=== PATIENT | male | born 1980 | race African-American/Black ===

== ENCOUNTER 2016-12-20 19:32 | Emergency (ER) | payer MEDICAID ==
[~2016-12-20] VITALS: Ht 182.9 cm; Wt 82.0 kg
[~2016-12-20 19:32] MED LIST: PARO30TA76 PO; SERT100T PO
[2016-12-20] MEDS ORDERED: IBUPROFEN 600MG TABLET PO STA (22:47)
[2016-12-20] MEDS ORDERED: OLANZAPINE 5MG TABLET PO ONE (23:00)
[2016-12-20] MEDS ORDERED: BENZTROPINE MESYLATE 0.5MG TABLET PO ONE (23:00)
[2016-12-20] MEDS ORDERED: TRAZODONE HCL 100MG TABLET PO ONE (23:00)
[2016-12-20 23:21] LABS: BASOPHILS % 0.9 % (0.0-2.0); EOSINOPHILS % 5.6 % (0.0-5.0); HEMATOCRIT. 41.2 % (42.0-52.0); LYMPHOCYTES % 29.7 % (20.0-50.0); MEAN CORPUSCULAR HEMOGLOBIN 32.6 pg (28.0-32.0); MEAN CORPUSCULAR HGB CONC 34.1 g/dL (31.0-37.0); MEAN CORPUSCULAR VOLUME 95.9 fL (80.0-94.0); MEAN PLATELET VOLUME 8.3 fl (7.4-10.4); MONOCYTES % 4.3 % (2.0-8.0); NEUTROPHILS % 59.5 % (40.0-76.0); PLATELET 268 x1000/uL (130-400); RED BLOOD CELL COUNT 4.29 mill/uL (4.7-6.1); RED CELL DISTRIBUTION WIDTH 12.5 % (11.6-14.6); WHITE BLOOD COUNT 8.5 x1000/uL (4.5-11.0)
[2016-12-20 23:28] LABS: ACETAMINOPHEN < 2 ug/mL (10-30); ALANINE AMINOTRANSFERASE 19 IU/L (13-61); ALBUMIN 4.3 g/dL (3.4-5.0); ANION GAP 12; CALCIUM 8.6 mg/dL (8.5-10.1); CARBON DIOXIDE 30 mEq/L (21-32); CHLORIDE 102 mEq/L (98-107); ETHANOL BLOOD 19 mg/dL; INDEX HEMOLYSI 3 (1-3); INDEX ICTERIC 1 (1-4); INDEX LIPEMIC 1 (1-3); UREA NITROGEN BLOOD 12 mg/dL (7-21); eGFR > 60 mL/min (>60)
[2016-12-21 06:57] LABS: CLARITY URINE CLEAR (CLEAR); COLOR URINE YELLOW (YELLOW); GLUCOSE URINE NEGATIVE (NEGATIVE); KETONES URINE TRACE (NEGATIVE); LEUKOCYTE ESTERASE URINE NEGATIVE (NEGATIVE); NITRITE URINE NEGATIVE (NEGATIVE); OCCULT BLOOD URINE NEGATIVE (NEGATIVE); PH URINE 5.5 (4.5-8.0); PROTEIN URINE NEGATIVE (NEGATIVE); SPECIFIC GRAVITY URINE 1.017 (1.005-1.030); UROBILINOGEN URINE 0.2 E.U./dL (0.2-1.0)
[2016-12-21 07:08] LABS: *AMPHETAMINES SCREEN URINE NEGATIVE (NEGATIVE); *BARBITURATES SCREEN URINE NEGATIVE (NEGATIVE); *BENZODIAZEPINES SCREEN URINE NEGATIVE (NEGATIVE); *COCAINE SCREEN URINE NEGATIVE (NEGATIVE); CANNABINOID URINE SCREEN NEGATIVE (NEGATIVE); ECSTASY MDMA SCREEN URINE NEGATIVE (NEGATIVE); METHADONE URINE SCREEN NEGATIVE (NEGATIVE); OPIATES URINE SCREEN NEGATIVE (NEGATIVE); PHENCYCLIDINE URINE SCREEN NEGATIVE (NEGATIVE)
[2016-12-21] MEDS ORDERED: OLANZAPINE 5MG TABLET PO SCH (09:00)
[2016-12-21 09:43] VITALS: BP 125/77
== END 2016-12-21 09:50 | disposition home or self-care (01) ==
LOC: ER 21:03
DX: F20.9 Schizophrenia, unspecified (principal); R45.851 Suicidal ideations; G89.29 Other chronic pain; M25.561 Pain in right knee; F17.210 Nicotine dependence, cigarettes, uncomplicated; Z91.14 Patient's other noncompliance with medication regimen
CPT/HCPCS: 36415; 80053; 80305; 80329; 81003; 85025; 99284; G0482; 80307

== ENCOUNTER 2018-07-05 22:20 | Emergency (ER) | payer MEDICAID ==
[~2018-07-05] VITALS: Ht 182.9 cm; Wt 82.0 kg
[2018-07-06 00:20] LABS: BASOPHILS % 0.8 % (0.0-2.0); EOSINOPHILS % 5.4 % (0.0-5.0); HEMATOCRIT. 36.8 % (42.0-52.0); HEMOGLOBIN. 12.9 g/dL (14.0-18.0); LYMPHOCYTES % 24.3 % (20.0-50.0); MEAN CORPUSCULAR HEMOGLOBIN 33.7 pg (28.0-32.0); MEAN CORPUSCULAR VOLUME 96.2 fL (80.0-94.0); MEAN PLATELET VOLUME 7.4 fl (7.4-10.4); NEUTROPHILS % 64.5 % (40.0-76.0); PLATELET 295 x1000/uL (130-400); RED BLOOD CELL COUNT 3.82 mill/uL (4.7-6.1); RED CELL DISTRIBUTION WIDTH 12.2 % (11.6-14.6)
[2018-07-06 00:28] LABS: CHLORIDE 101 mEq/L (98-107)
[2018-07-06 00:34] LABS: ETHANOL BLOOD < 10 mg/dL
[2018-07-06 01:01] LABS: *AMPHETAMINES SCREEN URINE NEGATIVE (NEGATIVE); *BARBITURATES SCREEN URINE NEGATIVE (NEGATIVE); *BENZODIAZEPINES SCREEN URINE NEGATIVE (NEGATIVE)
[2018-07-06 01:02] LABS: *COCAINE SCREEN URINE NEGATIVE (NEGATIVE); METHADONE URINE SCREEN NEGATIVE (NEGATIVE); OPIATES URINE SCREEN NEGATIVE (NEGATIVE)
[2018-07-06 01:03] LABS: CANNABINOID URINE SCREEN PRESUMTIVE POSITIVE (NEGATIVE); PHENCYCLIDINE URINE SCREEN NEGATIVE (NEGATIVE)
[2018-07-06 11:48] VITALS: BP 94/64
== END 2018-07-06 11:49 ==
LOC: ER 22:20
DX: R45.851 Suicidal ideations (principal); F31.9 Bipolar disorder, unspecified; F20.9 Schizophrenia, unspecified; F17.210 Nicotine dependence, cigarettes, uncomplicated; F12.10 Cannabis abuse, uncomplicated; R00.1 Bradycardia, unspecified
CPT/HCPCS: 36415; 80053; 80305; 80307; 80329; 85025; 93005; 99285; 99406; G0482

== ENCOUNTER 2018-10-17 20:31 | Emergency (ER) | payer MEDICAID ==
[~2018-10-17] VITALS: Ht 182.9 cm; Wt 91.0 kg
[2018-10-17 21:46] LABS: BASOPHILS % 0.4 % (0.0-2.0); EOSINOPHILS % 3.5 % (0.0-5.0); HEMATOCRIT. 37.7 % (42.0-52.0); HEMOGLOBIN. 12.8 g/dL (14.0-18.0); LYMPHOCYTES % 28.6 % (20.0-50.0); MEAN PLATELET VOLUME 7.6 fl (7.4-10.4); MONOCYTES % 4.3 % (2.0-8.0); NEUTROPHILS % 63.2 % (40.0-76.0); PLATELET 275 x1000/uL (130-400); RED BLOOD CELL COUNT 3.77 mill/uL (4.7-6.1); RED CELL DISTRIBUTION WIDTH 12.2 % (11.6-14.6)
[2018-10-17 21:49] LABS: CHLORIDE 108 mEq/L (98-107)
[2018-10-17 21:54] LABS: ETHANOL BLOOD 108 mg/dL
[2018-10-17 22:29] LABS: *AMPHETAMINES SCREEN URINE NEGATIVE (NEGATIVE); *BARBITURATES SCREEN URINE NEGATIVE (NEGATIVE)
[2018-10-17 22:30] LABS: *BENZODIAZEPINES SCREEN URINE NEGATIVE (NEGATIVE); *COCAINE SCREEN URINE NEGATIVE (NEGATIVE); METHADONE URINE SCREEN NEGATIVE (NEGATIVE); OPIATES URINE SCREEN NEGATIVE (NEGATIVE); PHENCYCLIDINE URINE SCREEN NEGATIVE (NEGATIVE)
[2018-10-17 22:31] LABS: CANNABINOID URINE SCREEN PRESUMTIVE POSITIVE (NEGATIVE)
[2018-10-18 09:55] VITALS: BP 132/74
== END 2018-10-18 09:59 | disposition home or self-care (01) ==
LOC: ER 20:31
DX: R45.851 Suicidal ideations (principal); F20.9 Schizophrenia, unspecified; F31.9 Bipolar disorder, unspecified; F17.200 Nicotine dependence, unspecified, uncomplicated
CPT/HCPCS: 36415; 80053; 80305; 80307; 80329; 85025; 93005; 99284; G0482

== ENCOUNTER 2019-03-16 20:07 | Emergency (ER) | payer MEDICAID ==
[~2019-03-16] VITALS: Ht 180.3 cm; Wt 82.7 kg
[2019-03-16 22:30] VITALS: BP 112/71
== END 2019-03-16 22:34 | disposition home or self-care (01) ==
LOC: ER 20:07
DX: F31.9 Bipolar disorder, unspecified (principal); F20.9 Schizophrenia, unspecified; R50.9 Fever, unspecified; F12.10 Cannabis abuse, uncomplicated; F17.200 Nicotine dependence, unspecified, uncomplicated; Z76.0 Encounter for issue of repeat prescription
CPT/HCPCS: 99282

== ENCOUNTER 2019-03-18 20:34 | Emergency (ER) | payer MEDICAID ==
[~2019-03-18] VITALS: Ht 180.3 cm; Wt 83.0 kg
[2019-03-18 23:53] LABS: BASOPHILS % 0.9 % (0.0-2.0); EOSINOPHILS % 5.2 % (0.0-5.0); HEMATOCRIT. 36.3 % (42.0-52.0); HEMOGLOBIN. 12.6 g/dL (14.0-18.0); LYMPHOCYTES % 28.7 % (20.0-50.0); MEAN CORPUSCULAR HEMOGLOBIN 33.9 pg (28.0-32.0); MEAN CORPUSCULAR VOLUME 97.4 fL (80.0-94.0); MEAN PLATELET VOLUME 7.7 fl (7.4-10.4); MONOCYTES % 4.3 % (2.0-8.0); NEUTROPHILS % 60.9 % (40.0-76.0); PLATELET 281 x1000/uL (130-400); RED BLOOD CELL COUNT 3.73 mill/uL (4.7-6.1); RED CELL DISTRIBUTION WIDTH 12.4 % (11.6-14.6)
[2019-03-18 23:59] LABS: CHLORIDE 106 mEq/L (98-107)
[2019-03-19 00:04] LABS: ETHANOL BLOOD < 10 mg/dL
[2019-03-19] MEDS ORDERED: TRAZODONE HCL 100MG TABLET PO SCH ×2 (00:25→21:00)
[2019-03-19 06:12] LABS: CLARITY URINE CLEAR (CLEAR); COLOR URINE YELLOW (YELLOW); KETONES URINE NEGATIVE (NEGATIVE); LEUKOCYTE ESTERASE URINE NEGATIVE (NEGATIVE); NITRITE URINE NEGATIVE (NEGATIVE); OCCULT BLOOD URINE NEGATIVE (NEGATIVE); PROTEIN URINE NEGATIVE (NEGATIVE); SPECIFIC GRAVITY URINE 1.013 (1.005-1.030)
[2019-03-19 06:32] LABS: *AMPHETAMINES SCREEN URINE NEGATIVE (NEGATIVE); *BARBITURATES SCREEN URINE NEGATIVE (NEGATIVE); *BENZODIAZEPINES SCREEN URINE NEGATIVE (NEGATIVE); *COCAINE SCREEN URINE NEGATIVE (NEGATIVE); METHADONE URINE SCREEN NEGATIVE (NEGATIVE); OPIATES URINE SCREEN NEGATIVE (NEGATIVE)
[2019-03-19 06:33] LABS: CANNABINOID URINE SCREEN PRESUMTIVE POSITIVE (NEGATIVE); PHENCYCLIDINE URINE SCREEN NEGATIVE (NEGATIVE)
[2019-03-19 09:51] VITALS: BP 110/68
== END 2019-03-19 10:31 | disposition home or self-care (01) ==
LOC: ER 20:34
DX: R45.851 Suicidal ideations (principal); F31.9 Bipolar disorder, unspecified; F20.9 Schizophrenia, unspecified; F17.200 Nicotine dependence, unspecified, uncomplicated; F12.10 Cannabis abuse, uncomplicated
CPT/HCPCS: 36415; 80305; 80320; 99284; G0480

== ENCOUNTER 2019-03-28 17:27 | Emergency (ER) | payer MEDICAID ==
[~2019-03-28] VITALS: Ht 180.3 cm; Wt 83.0 kg
[2019-03-28] MEDS ORDERED: BUPROPION HCL 75MG TABLET PO ONE (19:45)
[2019-03-28] MEDS ORDERED: GABAPENTIN 100MG CAPSULE PO ONE (19:45)
[2019-03-28] MEDS: OLANZAPINE 10MG TABLET PO SCH (20:17)
[2019-03-28 20:27] LABS: BASOPHILS % 0.7 % (0.0-2.0); EOSINOPHILS % 4.7 % (0.0-5.0); HEMATOCRIT. 36.7 % (42.0-52.0); LYMPHOCYTES % 30.1 % (20.0-50.0); MEAN CORPUSCULAR HEMOGLOBIN 34.4 pg (28.0-32.0); MEAN CORPUSCULAR VOLUME 96.9 fL (80.0-94.0); MEAN PLATELET VOLUME 7.7 fl (7.4-10.4); MONOCYTES % 5.2 % (2.0-8.0); NEUTROPHILS % 59.3 % (40.0-76.0); PLATELET 260 x1000/uL (130-400); RED BLOOD CELL COUNT 3.79 mill/uL (4.7-6.1); RED CELL DISTRIBUTION WIDTH 11.9 % (11.6-14.6)
[2019-03-28 20:33] LABS: CHLORIDE 106 mEq/L (98-107)
[2019-03-28 20:37] LABS: ETHANOL BLOOD < 10 mg/dL
[2019-03-28 20:42] LABS: *AMPHETAMINES SCREEN URINE NEGATIVE (NEGATIVE); *BARBITURATES SCREEN URINE NEGATIVE (NEGATIVE)
[2019-03-28 20:43] LABS: *BENZODIAZEPINES SCREEN URINE NEGATIVE (NEGATIVE); *COCAINE SCREEN URINE NEGATIVE (NEGATIVE); METHADONE URINE SCREEN NEGATIVE (NEGATIVE); OPIATES URINE SCREEN NEGATIVE (NEGATIVE)
[2019-03-28 20:44] LABS: CANNABINOID URINE SCREEN PRESUMTIVE POSITIVE (NEGATIVE); PHENCYCLIDINE URINE SCREEN NEGATIVE (NEGATIVE)
[2019-03-28] MEDS ORDERED: TRAZODONE HCL 100MG TABLET PO SCH (21:00)
[2019-03-29 09:30] VITALS: BP 111/65
[2019-03-29] MEDS: OLANZAPINE 10MG TABLET PO SCH (10:09)
== END 2019-03-29 10:25 | disposition home or self-care (01) ==
LOC: ER 17:27
DX: R45.851 Suicidal ideations (principal); F31.9 Bipolar disorder, unspecified; F20.9 Schizophrenia, unspecified; F12.10 Cannabis abuse, uncomplicated; Z98.890 Other specified postprocedural states; Z79.899 Other long term (current) drug therapy
CPT/HCPCS: 36415; 80305; 80307; 80320; 80329; 99284; G0480

== ENCOUNTER 2019-05-27 22:03 | Emergency (ER) | payer SELFPAY ==
[~2019-05-27] VITALS: Ht 180.3 cm; Wt 82.0 kg
[2019-05-27 23:57] LABS: CHLORIDE 103 mEq/L (98-107)
[2019-05-27 23:59] LABS: BASOPHILS % 0.9 % (0.0-2.0); EOSINOPHILS % 4.7 % (0.0-5.0); HEMATOCRIT. 35.6 % (42.0-52.0); HEMOGLOBIN. 12.3 g/dL (14.0-18.0); LYMPHOCYTES % 25.8 % (20.0-50.0); MEAN CORPUSCULAR HEMOGLOBIN 33.5 pg (28.0-32.0); MEAN PLATELET VOLUME 7.5 fl (7.4-10.4); MONOCYTES % 9.1 % (2.0-8.0); NEUTROPHILS % 59.5 % (40.0-76.0); PLATELET 279 x1000/uL (130-400); RED BLOOD CELL COUNT 3.67 mill/uL (4.7-6.1); RED CELL DISTRIBUTION WIDTH 11.9 % (11.6-14.6)
[2019-05-28 00:01] LABS: ETHANOL BLOOD < 10 mg/dL
[2019-05-28 00:40] LABS: CLARITY URINE CLEAR (CLEAR); COLOR URINE YELLOW (YELLOW); KETONES URINE TRACE (NEGATIVE); LEUKOCYTE ESTERASE URINE NEGATIVE (NEGATIVE); NITRITE URINE NEGATIVE (NEGATIVE); OCCULT BLOOD URINE NEGATIVE (NEGATIVE); PH URINE 5.5 (4.5-8.0); PROTEIN URINE NEGATIVE (NEGATIVE); SPECIFIC GRAVITY URINE 1.018 (1.005-1.030)
[2019-05-28 00:49] LABS: *AMPHETAMINES SCREEN URINE NEGATIVE (NEGATIVE); *BARBITURATES SCREEN URINE NEGATIVE (NEGATIVE)
[2019-05-28 00:50] LABS: *BENZODIAZEPINES SCREEN URINE NEGATIVE (NEGATIVE); OPIATES URINE SCREEN NEGATIVE (NEGATIVE)
[2019-05-28 00:51] LABS: *COCAINE SCREEN URINE NEGATIVE (NEGATIVE); METHADONE URINE SCREEN NEGATIVE (NEGATIVE)
[2019-05-28 00:52] LABS: PHENCYCLIDINE URINE SCREEN NEGATIVE (NEGATIVE)
[2019-05-28 00:53] LABS: CANNABINOID URINE SCREEN PRESUMTIVE POSITIVE (NEGATIVE)
[2019-05-28] MEDS ORDERED: OLANZAPINE 10MG TABLET PO SCH (01:00)
[2019-05-28 11:03] VITALS: BP 115/71
== END 2019-05-28 11:07 | disposition home or self-care (01) ==
LOC: ER 22:03
DX: F41.9 Anxiety disorder, unspecified (principal); R45.851 Suicidal ideations; F20.9 Schizophrenia, unspecified; F31.9 Bipolar disorder, unspecified; F12.10 Cannabis abuse, uncomplicated; F17.210 Nicotine dependence, cigarettes, uncomplicated; Z79.899 Other long term (current) drug therapy; Z98.890 Other specified postprocedural states; Z71.6 Tobacco abuse counseling
CPT/HCPCS: 36415; 80053; 80305; 80320; 81003; 85025; 99284; 99406; Z7610; G0480

== ENCOUNTER 2019-06-01 12:00 | Emergency (ER) | payer SELFPAY ==
[~2019-06-01] VITALS: Ht 182.9 cm; Wt 82.0 kg
[2019-06-01 12:14] VITALS: BP 114/66
== END 2019-06-01 18:49 | disposition left against medical advice (07) ==
LOC: ER 18:46
DX: Z53.21 Procedure and treatment not carried out due to patient leaving prior to being seen by health care provider (principal); F41.9 Anxiety disorder, unspecified; F31.9 Bipolar disorder, unspecified; F20.9 Schizophrenia, unspecified

== ENCOUNTER 2019-06-02 18:01 | Emergency (ER) | payer SELFPAY ==
[~2019-06-02] VITALS: Ht 180.3 cm; Wt 82.0 kg
[2019-06-02 18:22] VITALS: BP 109/64
== END 2019-06-03 00:20 | disposition left against medical advice (07) ==
LOC: ER 23:15
DX: Z53.21 Procedure and treatment not carried out due to patient leaving prior to being seen by health care provider (principal)

== ENCOUNTER 2019-06-04 19:24 | Emergency (ER) | payer SELFPAY ==
[~2019-06-04] VITALS: Ht 180.3 cm; Wt 82.0 kg
[2019-06-04] MEDS ORDERED: TRAZODONE HCL 50MG TABLET PO STA (21:03)
[2019-06-04] MEDS ORDERED: OLANZAPINE 5MG TABLET ODT PO ONE (21:15)
[2019-06-04] MEDS ORDERED: GABAPENTIN 100MG CAPSULE PO ONE (21:15)
[2019-06-04 21:18] LABS: BASOPHILS % 0.7 % (0.0-2.0); HEMATOCRIT. 36.1 % (42.0-52.0); HEMOGLOBIN. 12.4 g/dL (14.0-18.0); MEAN CORPUSCULAR HEMOGLOBIN 33.7 pg (28.0-32.0); MEAN CORPUSCULAR VOLUME 98.2 fL (80.0-94.0); MEAN PLATELET VOLUME 7.4 fl (7.4-10.4); NEUTROPHILS % 61.3 % (40.0-76.0); PLATELET 306 x1000/uL (130-400); RED BLOOD CELL COUNT 3.68 mill/uL (4.7-6.1); RED CELL DISTRIBUTION WIDTH 12.1 % (11.6-14.6)
[2019-06-04 21:23] LABS: CHLORIDE 108 mEq/L (98-107)
[2019-06-04 21:27] LABS: ETHANOL BLOOD < 10 mg/dL
[2019-06-04 22:14] LABS: *COCAINE SCREEN URINE NEGATIVE (NEGATIVE); METHADONE URINE SCREEN NEGATIVE (NEGATIVE); OPIATES URINE SCREEN NEGATIVE (NEGATIVE)
[2019-06-04 22:15] LABS: *AMPHETAMINES SCREEN URINE NEGATIVE (NEGATIVE); *BARBITURATES SCREEN URINE NEGATIVE (NEGATIVE); *BENZODIAZEPINES SCREEN URINE NEGATIVE (NEGATIVE); CANNABINOID URINE SCREEN PRESUMTIVE POSITIVE (NEGATIVE); PHENCYCLIDINE URINE SCREEN NEGATIVE (NEGATIVE)
[2019-06-05 15:09] VITALS: BP 110/56
== END 2019-06-05 16:02 | disposition home or self-care (01) ==
LOC: ER 19:24
DX: R45.851 Suicidal ideations (principal); F20.9 Schizophrenia, unspecified; F41.9 Anxiety disorder, unspecified; F31.9 Bipolar disorder, unspecified; F17.210 Nicotine dependence, cigarettes, uncomplicated; Z91.14 Patient's other noncompliance with medication regimen
CPT/HCPCS: 36415; 80048; 80305; 80307; 80320; 80329; 85025; 99284; Z7610; G0480

== ENCOUNTER 2019-06-26 16:44 | Emergency (ER) | payer SELFPAY ==
[~2019-06-26] VITALS: Ht 180.3 cm; Wt 81.0 kg
[2019-06-27 03:06] LABS: CHLORIDE 107 mEq/L (98-107); ETHANOL BLOOD < 10 mg/dL
[2019-06-27 03:12] LABS: BASOPHILS % 0.5 % (0.0-2.0); EOSINOPHILS % 5.4 % (0.0-5.0); HEMATOCRIT. 38.3 % (42.0-52.0); HEMOGLOBIN. 13.2 g/dL (14.0-18.0); LYMPHOCYTES % 27.6 % (20.0-50.0); MEAN CORPUSCULAR HEMOGLOBIN 33.6 pg (28.0-32.0); MEAN CORPUSCULAR VOLUME 97.8 fL (80.0-94.0); MONOCYTES % 5.5 % (2.0-8.0); PLATELET 295 x1000/uL (130-400); RED BLOOD CELL COUNT 3.92 mill/uL (4.7-6.1); RED CELL DISTRIBUTION WIDTH 12.2 % (11.6-14.6)
[2019-06-27 06:05] LABS: CLARITY URINE CLEAR (CLEAR); COLOR URINE YELLOW (YELLOW); KETONES URINE NEGATIVE (NEGATIVE); LEUKOCYTE ESTERASE URINE NEGATIVE (NEGATIVE); NITRITE URINE NEGATIVE (NEGATIVE); OCCULT BLOOD URINE NEGATIVE (NEGATIVE); PH URINE 5.5 (4.5-8.0); PROTEIN URINE NEGATIVE (NEGATIVE); SPECIFIC GRAVITY URINE 1.017 (1.005-1.030); UROBILINOGEN URINE 0.2 E.U./dL (0.2-1.0)
[2019-06-27 06:18] LABS: *AMPHETAMINES SCREEN URINE NEGATIVE (NEGATIVE); *BARBITURATES SCREEN URINE NEGATIVE (NEGATIVE); *BENZODIAZEPINES SCREEN URINE NEGATIVE (NEGATIVE); *COCAINE SCREEN URINE NEGATIVE (NEGATIVE)
[2019-06-27 06:19] LABS: CANNABINOID URINE SCREEN PRESUMTIVE POSITIVE (NEGATIVE); METHADONE URINE SCREEN NEGATIVE (NEGATIVE); OPIATES URINE SCREEN NEGATIVE (NEGATIVE); PHENCYCLIDINE URINE SCREEN NEGATIVE (NEGATIVE)
[2019-06-27 11:23] VITALS: BP 101/66
== END 2019-06-27 11:26 | disposition home or self-care (01) ==
LOC: ER 17:28
DX: F20.9 Schizophrenia, unspecified (principal); R45.851 Suicidal ideations; F31.9 Bipolar disorder, unspecified; F17.200 Nicotine dependence, unspecified, uncomplicated
CPT/HCPCS: 36415; 80048; 80305; 80307; 80320; 80329; 81003; 99284; G0480

== ENCOUNTER 2019-06-30 18:43 | Emergency (ER) | payer SELFPAY | END 2019-06-30 20:12 | disposition left against medical advice (07) | LOC: ER 18:43 | DX: Z53.21 Procedure and treatment not carried out due to patient leaving prior to being seen by health care provider (principal) ==

== ENCOUNTER 2019-07-01 17:46 | Emergency (ER) | payer SELFPAY ==
[~2019-07-01] VITALS: Ht 180.3 cm; Wt 82.0 kg
[2019-07-02 01:15] LABS: EOSINOPHILS % 5.3 % (0.0-5.0); HEMATOCRIT. 37.5 % (42.0-52.0); LYMPHOCYTES % 29.1 % (20.0-50.0); MEAN CORPUSCULAR HEMOGLOBIN 33.5 pg (28.0-32.0); MEAN PLATELET VOLUME 7.4 fl (7.4-10.4); MONOCYTES % 5.6 % (2.0-8.0); PLATELET 293 x1000/uL (130-400); RED BLOOD CELL COUNT 3.87 mill/uL (4.7-6.1)
[2019-07-02] MEDS ORDERED: LORAZEPAM 1MG TABLET PO ONE (01:15)
[2019-07-02 01:21] LABS: CHLORIDE 104 mEq/L (98-107)
[2019-07-02 01:24] LABS: ETHANOL BLOOD < 10 mg/dL
[2019-07-02 02:58] LABS: CLARITY URINE CLEAR (CLEAR); COLOR URINE YELLOW (YELLOW); KETONES URINE TRACE (NEGATIVE); LEUKOCYTE ESTERASE URINE NEGATIVE (NEGATIVE); NITRITE URINE NEGATIVE (NEGATIVE); OCCULT BLOOD URINE NEGATIVE (NEGATIVE); PH URINE 5.5 (4.5-8.0); PROTEIN URINE NEGATIVE (NEGATIVE); SPECIFIC GRAVITY URINE 1.018 (1.005-1.030)
[2019-07-02 03:19] LABS: CANNABINOID URINE SCREEN PRESUMTIVE POSITIVE (NEGATIVE); METHADONE URINE SCREEN NEGATIVE (NEGATIVE); OPIATES URINE SCREEN NEGATIVE (NEGATIVE); PHENCYCLIDINE URINE SCREEN NEGATIVE (NEGATIVE)
[2019-07-02 03:20] LABS: *AMPHETAMINES SCREEN URINE NEGATIVE (NEGATIVE); *BARBITURATES SCREEN URINE NEGATIVE (NEGATIVE); *BENZODIAZEPINES SCREEN URINE NEGATIVE (NEGATIVE)
[2019-07-02 03:21] LABS: *COCAINE SCREEN URINE NEGATIVE (NEGATIVE)
[2019-07-02] MEDS ORDERED: HALOPERIDOL LACTATE 5MG/ML VIAL IM ONE (13:15)
[2019-07-02] MEDS ORDERED: LORAZEPAM 2MG/ML CPJ IM ONE (13:15)
[2019-07-02 13:40] VITALS: BP 110/65
== END 2019-07-02 14:16 | disposition home or self-care (01) ==
LOC: ER 17:46
DX: F91.1 Conduct disorder, childhood-onset type (principal); F31.9 Bipolar disorder, unspecified; F20.9 Schizophrenia, unspecified; F12.10 Cannabis abuse, uncomplicated; F17.200 Nicotine dependence, unspecified, uncomplicated; Z91.14 Patient's other noncompliance with medication regimen; Z79.899 Other long term (current) drug therapy
CPT/HCPCS: 36415; 80305; 80320; 81003; 99283; J1630; J2060; G0480

== ENCOUNTER 2019-07-05 21:21 | Emergency (ER) | payer SELFPAY ==
[~2019-07-05] VITALS: Ht 180.3 cm; Wt 82.0 kg
[2019-07-05 22:11] VITALS: BP 112/66
== END 2019-07-06 09:37 | disposition left against medical advice (07) ==
LOC: ER 21:21
DX: Z76.0 Encounter for issue of repeat prescription (principal); F31.9 Bipolar disorder, unspecified; F20.9 Schizophrenia, unspecified; F17.200 Nicotine dependence, unspecified, uncomplicated; Z96.659 Presence of unspecified artificial knee joint
CPT/HCPCS: 99281

== ENCOUNTER 2019-07-08 02:06 | Emergency (ER) | payer SELFPAY ==
[~2019-07-08] VITALS: Ht 188 cm; Wt 82.0 kg
[2019-07-08 02:47] VITALS: BP 109/70
== END 2019-07-08 05:56 | disposition left against medical advice (07) ==
LOC: ER 02:06
DX: Z53.21 Procedure and treatment not carried out due to patient leaving prior to being seen by health care provider (principal)

== ENCOUNTER 2019-07-12 16:17 | Emergency (ER) | payer SELFPAY ==
[~2019-07-12] VITALS: Ht 180.3 cm; Wt 90.0 kg
[2019-07-12] MEDS ORDERED: OLANZAPINE 5MG TABLET ODT PO ONE (17:45)
[2019-07-12] MEDS ORDERED: OLANZAPINE 5MG TABLET ODT PO NR (18:00)
[2019-07-12 18:10] LABS: CHLORIDE 111 mEq/L (98-107)
[2019-07-12 18:11] LABS: BASOPHILS % 3.5 % (0.0-2.0); EOSINOPHILS % 6.3 % (0.0-5.0); HEMOGLOBIN. 12.4 g/dL (14.0-18.0); LYMPHOCYTES % 20.1 % (20.0-50.0); MEAN CORPUSCULAR HEMOGLOBIN 33.4 pg (28.0-32.0); MEAN CORPUSCULAR VOLUME 96.6 fL (80.0-94.0); MEAN PLATELET VOLUME 7.7 fl (7.4-10.4); MONOCYTES % 3.5 % (2.0-8.0); NEUTROPHILS % 66.6 % (40.0-76.0); PLATELET 278 x1000/uL (130-400); RED BLOOD CELL COUNT 3.73 mill/uL (4.7-6.1); RED CELL DISTRIBUTION WIDTH 12.3 % (11.6-14.6)
[2019-07-12 18:15] LABS: ETHANOL BLOOD 29 mg/dL
[2019-07-12 20:29] LABS: CLARITY URINE CLEAR (CLEAR); COLOR URINE YELLOW (YELLOW); KETONES URINE NEGATIVE (NEGATIVE); LEUKOCYTE ESTERASE URINE NEGATIVE (NEGATIVE); NITRITE URINE NEGATIVE (NEGATIVE); OCCULT BLOOD URINE NEGATIVE (NEGATIVE); PH URINE 6.5 (4.5-8.0); PROTEIN URINE NEGATIVE (NEGATIVE); SPECIFIC GRAVITY URINE 1.017 (1.005-1.030)
[2019-07-12 20:34] VITALS: BP 105/58
[2019-07-12 20:47] LABS: *AMPHETAMINES SCREEN URINE NEGATIVE (NEGATIVE); *BARBITURATES SCREEN URINE NEGATIVE (NEGATIVE); *BENZODIAZEPINES SCREEN URINE NEGATIVE (NEGATIVE); *COCAINE SCREEN URINE NEGATIVE (NEGATIVE); METHADONE URINE SCREEN NEGATIVE (NEGATIVE); OPIATES URINE SCREEN NEGATIVE (NEGATIVE); PHENCYCLIDINE URINE SCREEN NEGATIVE (NEGATIVE)
[2019-07-12 20:48] LABS: CANNABINOID URINE SCREEN PRESUMTIVE POSITIVE (NEGATIVE)
== END 2019-07-12 21:04 | disposition home or self-care (01) ==
LOC: ER 16:17
DX: R44.3 Hallucinations, unspecified (principal); F12.10 Cannabis abuse, uncomplicated
CPT/HCPCS: 36415; 80305; 80307; 80320; 80329; 81003; 99284; G0480

== ENCOUNTER 2019-07-14 21:15 | Emergency (ER) | payer SELFPAY ==
[~2019-07-14] VITALS: Ht 180.3 cm; Wt 82.0 kg
[2019-07-15] MEDS ORDERED: OLANZAPINE 10 MG/VIAL IM ONE (01:00)
[2019-07-15 08:00] VITALS: BP 110/75
== END 2019-07-15 10:29 | disposition left against medical advice (07) ==
LOC: ER 21:15
DX: F20.9 Schizophrenia, unspecified (principal); Z53.21 Procedure and treatment not carried out due to patient leaving prior to being seen by health care provider; F12.10 Cannabis abuse, uncomplicated; Z79.899 Other long term (current) drug therapy
CPT/HCPCS: 96372; 99283; J3490

== ENCOUNTER 2019-09-05 20:21 | Emergency (ER) | payer MEDICAID ==
[~2019-09-05] VITALS: Ht 180.3 cm; Wt 77.2 kg
[2019-09-05] MEDS ORDERED: OLANZAPINE 5MG TABLET ODT PO ONE (21:30)
[2019-09-05] MEDS ORDERED: LORAZEPAM 1MG TABLET PO ONE (21:30)
[2019-09-05 22:15] LABS: BASOPHILS % 0.8 % (0.0-2.0); EOSINOPHILS % 4.9 % (0.0-5.0); HEMATOCRIT. 37.6 % (42.0-52.0); LYMPHOCYTES % 29.9 % (20.0-50.0); MEAN CORPUSCULAR HEMOGLOBIN 33.8 pg (28.0-32.0); MEAN CORPUSCULAR VOLUME 97.8 fL (80.0-94.0); MEAN PLATELET VOLUME 8.3 fl (7.4-10.4); NEUTROPHILS % 60.4 % (40.0-76.0); PLATELET 257 x1000/uL (130-400); RED BLOOD CELL COUNT 3.85 mill/uL (4.7-6.1)
[2019-09-05 22:17] LABS: CHLORIDE 107 mEq/L (98-107)
[2019-09-05 22:22] LABS: ETHANOL BLOOD 41 mg/dL
[2019-09-05 22:26] LABS: CLARITY URINE CLEAR (CLEAR); COLOR URINE YELLOW (YELLOW); KETONES URINE NEGATIVE (NEGATIVE); LEUKOCYTE ESTERASE URINE NEGATIVE (NEGATIVE); NITRITE URINE NEGATIVE (NEGATIVE); OCCULT BLOOD URINE NEGATIVE (NEGATIVE); PH URINE 5.5 (4.5-8.0); PROTEIN URINE NEGATIVE (NEGATIVE); SPECIFIC GRAVITY URINE 1.015 (1.005-1.030)
[2019-09-05 22:40] LABS: *AMPHETAMINES SCREEN URINE NEGATIVE (NEGATIVE); *BARBITURATES SCREEN URINE NEGATIVE (NEGATIVE); *BENZODIAZEPINES SCREEN URINE NEGATIVE (NEGATIVE); CANNABINOID URINE SCREEN PRESUMTIVE POSITIVE (NEGATIVE)
[2019-09-05 22:41] LABS: METHADONE URINE SCREEN NEGATIVE (NEGATIVE); OPIATES URINE SCREEN NEGATIVE (NEGATIVE); PHENCYCLIDINE URINE SCREEN NEGATIVE (NEGATIVE)
[2019-09-05 22:51] LABS: *COCAINE SCREEN URINE NEGATIVE (NEGATIVE)
[2019-09-06 06:43] VITALS: BP 105/71
== END 2019-09-06 12:27 | disposition home or self-care (01) ==
LOC: ER 20:21
DX: R45.851 Suicidal ideations (principal); F31.9 Bipolar disorder, unspecified; F20.9 Schizophrenia, unspecified; F10.129 Alcohol abuse with intoxication, unspecified; Y90.0 Blood alcohol level of less than 20 mg/100 ml; Z91.14 Patient's other noncompliance with medication regimen
CPT/HCPCS: 36415; 80305; 80307; 80320; 80329; 81003; 99284; G0480

== ENCOUNTER 2019-09-08 13:09 | Emergency (ER) | payer MEDICAID ==
[~2019-09-08] VITALS: Ht 172.7 cm; Wt 80.0 kg
[2019-09-08 13:25] VITALS: BP 128/75
[2019-09-09] MEDS ORDERED: OLAN15TA3 PO (04:13)
== END 2019-09-08 14:43 | disposition left against medical advice (07) ==
LOC: ER 13:09
DX: Z76.0 Encounter for issue of repeat prescription (principal); Z53.21 Procedure and treatment not carried out due to patient leaving prior to being seen by health care provider

== ENCOUNTER 2019-09-08 17:21 | Inpatient (IN) | payer MEDICAID ==
[~2019-09-08] VITALS: Ht 182.9 cm; Wt 84.8 kg
[2019-09-08] MEDS ORDERED: MAGNESIUM/ALUMINUM HYDROXIDE/SIMETHICONE 30ML UDC PO STA (18:38)
[2019-09-08] MEDS ORDERED: VISCOUS LIDOCAINE 2% 15 ML UDC PO STA (18:38)
[2019-09-08] MEDS ORDERED: FAMOTIDINE 20MG/2ML VIAL IV STA (18:38)
[2019-09-08 19:07] LABS: HEMATOCRIT. 39.1 % (42.0-52.0); HEMOGLOBIN. 13.2 g/dL (14.0-18.0); MEAN CORPUSCULAR HEMOGLOBIN 32.7 pg (28.0-32.0); MEAN CORPUSCULAR VOLUME 96.8 fL (80.0-94.0); MEAN PLATELET VOLUME 7.7 fl (7.4-10.4); PLATELET 276 x1000/uL (130-400); RED BLOOD CELL COUNT 4.04 mill/uL (4.7-6.1); RED CELL DISTRIBUTION WIDTH 12.4 % (11.6-14.6)
[2019-09-08 19:13] LABS: CHLORIDE 106 mEq/L (98-107)
[2019-09-08] MEDS ORDERED: OLANZAPINE 5MG TABLET ODT PO ONE (19:30)
[2019-09-08 20:57] LABS: PLATELET ESTIMATE NORMAL
[2019-09-08 21:08] LABS: CLARITY URINE CLEAR (CLEAR); COLOR URINE YELLOW (YELLOW); KETONES URINE 1+ (NEGATIVE); LEUKOCYTE ESTERASE URINE NEGATIVE (NEGATIVE); NITRITE URINE NEGATIVE (NEGATIVE); OCCULT BLOOD URINE NEGATIVE (NEGATIVE); PROTEIN URINE TRACE (NEGATIVE); SPECIFIC GRAVITY URINE 1.016 (1.005-1.030)
[2019-09-08] MEDS ORDERED: MORPHINE SULFATE 4 MG/ML CPJ (NOT FOR IM USE) IV ONE (22:30)
[2019-09-09] MEDS ORDERED: PIPERACILLIN/TAZOBACTAM 3.375GM/50ML PREMIX IV ONE (00:15)
[2019-09-09] MEDS ORDERED: PIPERACILLIN/TAZOBACTAM 3.375 G in DEXT 5% WATER 100 ML IV NR (00:50)
[2019-09-09] MEDS ORDERED: SKIN ADHESIVE 0.7 GM EA TOP ONE (00:50)
[2019-09-09] MEDS ORDERED: BUPIVACAINE HCL 0.5% (5MG/ML) 50ML ONE (00:50)
[2019-09-09] MEDS ORDERED: IOHEXOL-300 100 ML BOTTLE ONE (00:52)
[2019-09-09] MEDS ORDERED: HYDROCODONE/ACETAMINOPHEN 5/325MG TABLET PO PRN (01:00)
[2019-09-09] MEDS ORDERED: MORPHINE SULFATE 2 MG/ML CPJ (NOT FOR IM USE) IV PRN ×2 (01:00→02:15)
[2019-09-09] MEDS ORDERED: ONDANSETRON HCL 4MG/2ML INJ IV PRN ×2 (01:00→02:15)
[2019-09-09] MEDS ORDERED: MIDAZOLAM HCL 2 MG/2 ML VIAL ONE (01:11)
[2019-09-09] MEDS ORDERED: GLYCOPYRROLATE 0.2 MG/ML 2ML VIAL ONE (01:11)
[2019-09-09] MEDS ORDERED: PROPOFOL 200MG/20ML VIAL IV ONE (01:11)
[2019-09-09] MEDS ORDERED: FENTANYL CITRATE/PF 50MCG/ML 2ML VIAL ONE ×2 (01:11→01:38)
[2019-09-09] MEDS ORDERED: NEOSTIGMINE METHYLSULFATE 1MG/ML 10 ML VIAL ONE (01:11)
[2019-09-09] MEDS ORDERED: ROCURONIUM BROMIDE 10MG/ML VIAL 5ML IV ONE (01:11)
[2019-09-09] MEDS ORDERED: SODIUM CHLORIDE 0.9% 10ML VIAL ONE (01:12)
[2019-09-09] MEDS ORDERED: SUCCINYLCHOLINE CHLORIDE 200MG/10ML IV ONE (01:12)
[2019-09-09] MEDS ORDERED: PHENYLEPHRINE HCL 10 MG/ML 1ML (IV VIAL) IV ONE (01:12)
[2019-09-09] MEDS ORDERED: LIDOCAINE HCL/PF 1% 10 MG/ML 5ML VIAL ONE (01:12)
[2019-09-09] MEDS ORDERED: EPHEDRINE SULFATE 50MG/ML VIAL ONE (01:12)
[2019-09-09] MEDS ORDERED: METOCLOPRAMIDE HCL 10MG/2ML VIAL ONE (01:13)
[2019-09-09] MEDS ORDERED: SODIUM CHLORIDE 0.9% 1,000 ML IV ONE (02:12)
[2019-09-09] MEDS ORDERED: MEPERIDINE HCL/PF 25MG/ML CPJ IV PRN ×2 (02:15)
[2019-09-09] MEDS ORDERED: HYDROMORPHONE HCL/PF 2MG/ML CPJ IV PRN (02:15)
[2019-09-09 03:20] VITALS: BP 102/60
[2019-09-09 04:00] VITALS: BP 102/60
[2019-09-09] MEDS ORDERED: OLAN15TA3 PO (04:13)
[2019-09-09] MEDS: HYDROCODONE/ACETAMINOPHEN 5/325MG TABLET PO PRN (05:14)
[2019-09-09] MEDS: SODIUM CHLORIDE 0.9% INJ 3ML FLUSH IVF SCH ×3 (06:46→21:03)
[2019-09-09 08:00] VITALS: BP 95/52
[2019-09-09 12:00] VITALS: BP 98/61
[2019-09-09] MEDS: MORPHINE SULFATE 4 MG/ML CPJ (NOT FOR IM USE) IV PRN ×3 (14:55→20:44)
[2019-09-09] MEDS: DEXT 5%/0.45% NACL KCL 20MEQ/L 1,000 ML IV SCH (15:41)
[2019-09-09 16:00] VITALS: BP 97/63
[2019-09-09 20:00] VITALS: BP 101/61
[2019-09-10] VITALS: BP 97/59
[2019-09-10] MEDS: MORPHINE SULFATE 4 MG/ML CPJ (NOT FOR IM USE) IV PRN ×3 (00:19→08:39)
[2019-09-10 04:00] VITALS: BP 98/68
[2019-09-10] MEDS: DEXT 5%/0.45% NACL KCL 20MEQ/L 1,000 ML IV SCH ×2 (04:34→10:46)
[2019-09-10 06:05] VITALS: BP 98/68
[2019-09-10] MEDS: SODIUM CHLORIDE 0.9% INJ 3ML FLUSH IVF SCH ×2 (06:09→13:13)
[2019-09-10 07:28] LABS: BASOPHILS % 0.3 % (0.0-2.0); EOSINOPHILS % 1.4 % (0.0-5.0); HEMATOCRIT. 34.7 % (42.0-52.0); HEMOGLOBIN. 12.3 g/dL (14.0-18.0); LYMPHOCYTES % 15.1 % (20.0-50.0); MEAN CORPUSCULAR HEMOGLOBIN 34.5 pg (28.0-32.0); MEAN CORPUSCULAR VOLUME 97.5 fL (80.0-94.0); MEAN PLATELET VOLUME 8.1 fl (7.4-10.4); MONOCYTES % 4.5 % (2.0-8.0); NEUTROPHILS % 78.7 % (40.0-76.0); PLATELET 213 x1000/uL (130-400); RED BLOOD CELL COUNT 3.55 mill/uL (4.7-6.1); RED CELL DISTRIBUTION WIDTH 12.3 % (11.6-14.6)
[2019-09-10 07:30] LABS: CHLORIDE 107 mEq/L (98-107)
[2019-09-10 08:00] VITALS: BP 122/83
[2019-09-10] MEDS ORDERED: SERTRALINE HCL 100MG TABLET PO SCH (09:00)
[2019-09-10] MEDS: HYDROCODONE/ACETAMINOPHEN 5/325MG TABLET PO PRN (11:59)
[2019-09-10 12:00] VITALS: BP 115/73
[2019-09-10 13:04] VITALS: BP 115/73
== END 2019-09-10 13:45 | disposition home or self-care (01) | DRG 234 ==
LOC: ER 17:21 → 6EST 09-09 01:20 → ENRESERV 09-09 02:31
PROVIDERS: ADMIT Internal Medicine; ATTEND Internal Medicine
PROC: 0DTJ4ZZ Resection of Appendix, Percutaneous Endoscopic Approach (ICD-10-PCS; principal; 2019-09-09)
DX: K35.80 Unspecified acute appendicitis (principal); F20.9 Schizophrenia, unspecified; F31.9 Bipolar disorder, unspecified; F17.210 Nicotine dependence, cigarettes, uncomplicated; Z71.6 Tobacco abuse counseling
CPT/HCPCS: 36415; 74177; 80048; 81003; 88304; 93005; 99285; J0330; J2175; J2250; J2270; J2370; J2405; J2543; J2704; J2710; J2765; J3010; J3490; J7030; J7060; Q9967

== ENCOUNTER 2019-09-12 14:15 | Emergency (ER) | payer MEDICAID ==
[~2019-09-12] VITALS: Ht 180.3 cm; Wt 77.0 kg
[~2019-09-12 14:15] MED LIST changes: +OLAN15TA3 PO
[2019-09-12] MEDS ORDERED: SODIUM CHLORIDE 0.9% 1,000 ML IV ONE (17:49)
[2019-09-12] MEDS ORDERED: ONDANSETRON HCL 4MG/2ML INJ IV STA (17:49)
[2019-09-12 18:37] LABS: BASOPHILS % 0.3 % (0.0-2.0); EOSINOPHILS % 2.6 % (0.0-5.0); HEMATOCRIT. 35.8 % (42.0-52.0); HEMOGLOBIN. 12.4 g/dL (14.0-18.0); LYMPHOCYTES % 16.5 % (20.0-50.0); MEAN CORPUSCULAR HEMOGLOBIN 33.6 pg (28.0-32.0); MEAN CORPUSCULAR VOLUME 96.8 fL (80.0-94.0); MONOCYTES % 4.3 % (2.0-8.0); NEUTROPHILS % 76.3 % (40.0-76.0); PLATELET 284 x1000/uL (130-400)
[2019-09-12 18:40] LABS: CHLORIDE 106 mEq/L (98-107)
[2019-09-12] MEDS ORDERED: MORPHINE SULFATE 4 MG/ML CPJ (NOT FOR IM USE) IV ONE (19:00)
[2019-09-12] MEDS ORDERED: KETOROLAC 30MG/ML VIAL IV ONE (19:00)
[2019-09-12 20:43] VITALS: BP 126/77
== END 2019-09-12 20:44 | disposition home or self-care (01) ==
LOC: ER 14:15
DX: G89.18 Other acute postprocedural pain (principal); R10.9 Unspecified abdominal pain; K59.00 Constipation, unspecified; F31.9 Bipolar disorder, unspecified; F20.9 Schizophrenia, unspecified; Z98.890 Other specified postprocedural states
CPT/HCPCS: 36415; 74176; 80053; 83690; 85025; 96361; 96374; 96375; 99284; J1885; J2270; J2405; J7030

== ENCOUNTER 2019-09-14 21:12 | Emergency (ER) | payer MEDICAID ==
[~2019-09-14] VITALS: Ht 182.9 cm; Wt 75.6 kg
[2019-09-14 22:07] VITALS: BP 116/69
[2019-09-14] MEDS ORDERED: MAGNESIUM HYDROXIDE 400MG/5ML 30ML UDC PO ONE (22:15)
[2019-09-14] MEDS ORDERED: KETOROLAC 60MG/2ML VIAL IM STA (22:15)
[2019-09-14 22:40] LABS: BASOPHILS % 0.5 % (0.0-2.0); EOSINOPHILS % 1.4 % (0.0-5.0); HEMOGLOBIN. 11.5 g/dL (14.0-18.0); LYMPHOCYTES % 18.5 % (20.0-50.0); MEAN CORPUSCULAR HEMOGLOBIN 33.6 pg (28.0-32.0); MEAN CORPUSCULAR VOLUME 96.4 fL (80.0-94.0); MEAN PLATELET VOLUME 7.2 fl (7.4-10.4); MONOCYTES % 7.1 % (2.0-8.0); NEUTROPHILS % 72.5 % (40.0-76.0); PLATELET 278 x1000/uL (130-400); RED BLOOD CELL COUNT 3.43 mill/uL (4.7-6.1); RED CELL DISTRIBUTION WIDTH 12.3 % (11.6-14.6)
[2019-09-14 22:46] LABS: CHLORIDE 107 mEq/L (98-107)
== END 2019-09-14 23:26 | disposition home or self-care (01) ==
LOC: ER 21:12
DX: G89.18 Other acute postprocedural pain (principal); F31.9 Bipolar disorder, unspecified; F20.9 Schizophrenia, unspecified; Z98.890 Other specified postprocedural states
CPT/HCPCS: 36415; 80053; 83690; 85025; 96372; 99283; J1885; J7040

== ENCOUNTER 2019-09-15 00:08 | Emergency (ER) | payer MEDICAID ==
[~2019-09-15] VITALS: Ht 180.3 cm; Wt 80.0 kg
[2019-09-15 02:17] LABS: ETHANOL BLOOD < 10 mg/dL
[2019-09-15 03:25] LABS: CLARITY URINE CLEAR (CLEAR); COLOR URINE YELLOW (YELLOW); KETONES URINE TRACE (NEGATIVE); LEUKOCYTE ESTERASE URINE NEGATIVE (NEGATIVE); NITRITE URINE NEGATIVE (NEGATIVE); OCCULT BLOOD URINE NEGATIVE (NEGATIVE); PROTEIN URINE TRACE (NEGATIVE); SPECIFIC GRAVITY URINE 1.017 (1.005-1.030)
[2019-09-15 03:43] LABS: CANNABINOID URINE SCREEN PRESUMTIVE POSITIVE (NEGATIVE)
[2019-09-15 03:44] LABS: *AMPHETAMINES SCREEN URINE NEGATIVE (NEGATIVE); *BARBITURATES SCREEN URINE NEGATIVE (NEGATIVE); *BENZODIAZEPINES SCREEN URINE NEGATIVE (NEGATIVE); *COCAINE SCREEN URINE NEGATIVE (NEGATIVE); METHADONE URINE SCREEN NEGATIVE (NEGATIVE); OPIATES URINE SCREEN PRESUMTIVE POSITIVE (NEGATIVE)
[2019-09-15 03:45] LABS: PHENCYCLIDINE URINE SCREEN NEGATIVE (NEGATIVE)
[2019-09-15 17:35] VITALS: BP 132/79
== END 2019-09-15 19:48 | disposition home or self-care (01) ==
LOC: ER 00:08
DX: R45.851 Suicidal ideations (principal); G89.29 Other chronic pain; R10.9 Unspecified abdominal pain; F12.10 Cannabis abuse, uncomplicated; F31.9 Bipolar disorder, unspecified; F20.9 Schizophrenia, unspecified; Z90.49 Acquired absence of other specified parts of digestive tract
CPT/HCPCS: 36415; 80305; 80307; 80320; 80329; 81003; 99283; G0480

== ENCOUNTER 2019-09-17 21:00 | Emergency (ER) | payer MEDICAID | END 2019-09-18 00:11 | disposition left against medical advice (07) | LOC: ER 21:00 | DX: Z53.21 Procedure and treatment not carried out due to patient leaving prior to being seen by health care provider (principal); F31.9 Bipolar disorder, unspecified; F20.9 Schizophrenia, unspecified; Z59.0 Homelessness; Z87.891 Personal history of nicotine dependence ==

== ENCOUNTER 2019-09-28 20:06 | Emergency (ER) | payer MEDICAID ==
[~2019-09-28] VITALS: Ht 182.9 cm; Wt 80.0 kg
[2019-09-28 20:43] VITALS: BP 114/68
== END 2019-09-28 22:01 | disposition left against medical advice (07) ==
LOC: ER 20:06
DX: Z53.21 Procedure and treatment not carried out due to patient leaving prior to being seen by health care provider (principal); F31.9 Bipolar disorder, unspecified; F20.9 Schizophrenia, unspecified

== ENCOUNTER 2019-10-01 22:12 | Emergency (ER) | payer MEDICAID | END 2019-10-02 01:21 | disposition left against medical advice (07) | LOC: ER 22:12 | DX: R45.851 Suicidal ideations (principal); Z53.21 Procedure and treatment not carried out due to patient leaving prior to being seen by health care provider ==

== ENCOUNTER 2019-10-11 15:37 | Emergency (ER) | payer MEDICAID ==
[~2019-10-11] VITALS: Ht 180.3 cm; Wt 88.0 kg
[2019-10-11 16:00] VITALS: BP 126/80
== END 2019-10-11 20:00 | disposition left against medical advice (07) ==
LOC: ER 15:37
DX: J02.9 Acute pharyngitis, unspecified (principal); Z53.21 Procedure and treatment not carried out due to patient leaving prior to being seen by health care provider

== ENCOUNTER 2019-10-12 08:58 | Emergency (ER) | payer MEDICAID ==
[~2019-10-12] VITALS: Ht 180.3 cm; Wt 83.0 kg
[2019-10-12] MEDS ORDERED: KETOROLAC 15MG/ML VIAL IV ONE (10:00)
[2019-10-12 10:26] VITALS: BP 126/77
[2019-10-12 10:48] LABS: BASOPHILS % 0.6 % (0.0-2.0); EOSINOPHILS % 7.5 % (0.0-5.0); HEMATOCRIT. 36.6 % (42.0-52.0); HEMOGLOBIN. 12.5 g/dL (14.0-18.0); LYMPHOCYTES % 25.2 % (20.0-50.0); MEAN CORPUSCULAR HEMOGLOBIN 33.5 pg (28.0-32.0); MEAN CORPUSCULAR VOLUME 97.8 fL (80.0-94.0); MEAN PLATELET VOLUME 7.6 fl (7.4-10.4); MONOCYTES % 5.2 % (2.0-8.0); NEUTROPHILS % 61.5 % (40.0-76.0); PLATELET 244 x1000/uL (130-400); RED BLOOD CELL COUNT 3.74 mill/uL (4.7-6.1); RED CELL DISTRIBUTION WIDTH 12.9 % (11.6-14.6)
[2019-10-12 10:55] LABS: CHLORIDE 110 mEq/L (98-107)
[2019-10-12] MEDS ORDERED: IOHEXOL-300 100 ML BOTTLE ONE (11:56)
== END 2019-10-12 12:15 | disposition home or self-care (01) ==
LOC: ER 08:58
DX: E04.1 Nontoxic single thyroid nodule (principal); R59.9 Enlarged lymph nodes, unspecified; F17.200 Nicotine dependence, unspecified, uncomplicated; Z98.890 Other specified postprocedural states
CPT/HCPCS: 36415; 70491; 80053; 85025; 87070; 87430; 96374; 99284; J1885; Q9967

== ENCOUNTER 2019-12-07 17:33 | Emergency (ER) | payer MEDICAID ==
[~2019-12-07] VITALS: Ht 180.3 cm; Wt 81.0 kg
[2019-12-07 18:12] VITALS: BP 130/72
== END 2019-12-07 23:23 | disposition left against medical advice (07) ==
LOC: ER 17:33
DX: Z53.21 Procedure and treatment not carried out due to patient leaving prior to being seen by health care provider (principal)

== ENCOUNTER 2020-05-06 21:24 | Emergency (ER) | payer MEDICAID ==
[~2020-05-06] VITALS: Ht 175.3 cm; Wt 91.0 kg
[2020-05-07 00:49] LABS: BASOPHILS % 0.5 % (0.0-2.0); EOSINOPHILS % 4.2 % (0.0-5.0); HEMATOCRIT. 37.7 % (42.0-52.0); HEMOGLOBIN. 13.1 g/dL (14.0-18.0); LYMPHOCYTES % 26.2 % (20.0-50.0); MEAN CORPUSCULAR HEMOGLOBIN 33.5 pg (28.0-32.0); MEAN CORPUSCULAR VOLUME 96.5 fL (80.0-94.0); MEAN PLATELET VOLUME 7.2 fl (7.4-10.4); MONOCYTES % 3.9 % (2.0-8.0); NEUTROPHILS % 65.2 % (40.0-76.0); PLATELET 296 x1000/uL (130-400); RED CELL DISTRIBUTION WIDTH 12.5 % (11.6-14.6)
[2020-05-07 01:08] LABS: CHLORIDE 110 mEq/L (98-107)
[2020-05-07 01:12] LABS: ETHANOL BLOOD < 10 mg/dL
[2020-05-07 08:11] LABS: CLARITY URINE CLEAR (CLEAR); COLOR URINE YELLOW (YELLOW); KETONES URINE NEGATIVE (NEGATIVE); LEUKOCYTE ESTERASE URINE NEGATIVE (NEGATIVE); NITRITE URINE NEGATIVE (NEGATIVE); OCCULT BLOOD URINE NEGATIVE (NEGATIVE); PROTEIN URINE NEGATIVE (NEGATIVE); SPECIFIC GRAVITY URINE 1.017 (1.005-1.030)
[2020-05-07 08:24] LABS: *AMPHETAMINES SCREEN URINE NEGATIVE (NEGATIVE); *BARBITURATES SCREEN URINE NEGATIVE (NEGATIVE); *BENZODIAZEPINES SCREEN URINE NEGATIVE (NEGATIVE)
[2020-05-07 08:25] LABS: *COCAINE SCREEN URINE NEGATIVE (NEGATIVE); CANNABINOID URINE SCREEN PRESUMTIVE POSITIVE (NEGATIVE); METHADONE URINE SCREEN NEGATIVE (NEGATIVE); OPIATES URINE SCREEN NEGATIVE (NEGATIVE); PHENCYCLIDINE URINE SCREEN NEGATIVE (NEGATIVE)
[2020-05-07] MEDS ORDERED: OLANZAPINE 10MG TABLET PO SCH (09:00)
[2020-05-07] MEDS ORDERED: BUPROPION HCL 150MG TABLET XL 24HR PO ONE (09:00)
[2020-05-07 10:03] VITALS: BP 99/64
== END 2020-05-07 10:05 | disposition home or self-care (01) ==
LOC: ER 21:24
DX: R45.851 Suicidal ideations (principal); R44.0 Auditory hallucinations; Z91.19 Patient's noncompliance with other medical treatment and regimen; Z98.890 Other specified postprocedural states
CPT/HCPCS: 36415; 80053; 80305; 80307; 80320; 80329; 81003; 85025; 99285; G0480

== ENCOUNTER 2020-05-14 18:16 | Emergency (ER) | payer MEDICAID ==
[~2020-05-14] VITALS: Ht 180.3 cm; Wt 91.0 kg
[2020-05-14 18:25] VITALS: BP 108/64
[2020-05-14] MEDS ORDERED: BUPR300T52 PO (18:31)
[2020-05-14] MEDS ORDERED: TRAZ300T11 PO (18:31)
[2020-05-14] MEDS ORDERED: GABA-531 PO (18:31)
[2020-05-14] MEDS ORDERED: QUET300T2 PO (18:31)
[2020-05-14] MEDS ORDERED: OLANZAPINE 10MG TABLET PO SCH (20:00)
[2020-05-14 20:42] LABS: BASOPHILS % 0.5 % (0.0-2.0); EOSINOPHILS % 0.8 % (0.0-5.0); HEMOGLOBIN. 13.5 g/dL (14.0-18.0); LYMPHOCYTES % 17.4 % (20.0-50.0); MEAN CORPUSCULAR HEMOGLOBIN 33.2 pg (28.0-32.0); MEAN CORPUSCULAR VOLUME 95.7 fL (80.0-94.0); MEAN PLATELET VOLUME 7.7 fl (7.4-10.4); MONOCYTES % 3.8 % (2.0-8.0); NEUTROPHILS % 77.5 % (40.0-76.0); PLATELET 327 x1000/uL (130-400); RED BLOOD CELL COUNT 4.08 mill/uL (4.7-6.1); RED CELL DISTRIBUTION WIDTH 12.4 % (11.6-14.6)
[2020-05-14 20:49] LABS: CLARITY URINE CLEAR (CLEAR); COLOR URINE YELLOW (YELLOW); KETONES URINE TRACE (NEGATIVE); LEUKOCYTE ESTERASE URINE NEGATIVE (NEGATIVE); NITRITE URINE NEGATIVE (NEGATIVE); OCCULT BLOOD URINE NEGATIVE (NEGATIVE); PROTEIN URINE NEGATIVE (NEGATIVE)
[2020-05-14 20:53] LABS: CHLORIDE 103 mEq/L (98-107)
[2020-05-14 20:57] LABS: ETHANOL BLOOD 39 mg/dL
[2020-05-14 20:59] LABS: *AMPHETAMINES SCREEN URINE NEGATIVE (NEGATIVE)
[2020-05-14 21:00] LABS: *BARBITURATES SCREEN URINE NEGATIVE (NEGATIVE); *BENZODIAZEPINES SCREEN URINE NEGATIVE (NEGATIVE); *COCAINE SCREEN URINE NEGATIVE (NEGATIVE); METHADONE URINE SCREEN NEGATIVE (NEGATIVE); OPIATES URINE SCREEN PRESUMTIVE POSITIVE (NEGATIVE); PHENCYCLIDINE URINE SCREEN NEGATIVE (NEGATIVE)
[2020-05-14 21:01] LABS: CANNABINOID URINE SCREEN PRESUMTIVE POSITIVE (NEGATIVE)
== END 2020-05-15 06:53 | disposition home or self-care (01) ==
LOC: ER 18:16
DX: F32.9 Major depressive disorder, single episode, unspecified (principal); F23 Brief psychotic disorder; Z90.49 Acquired absence of other specified parts of digestive tract; Z98.890 Other specified postprocedural states
CPT/HCPCS: 36415; 80053; 80305; 80320; 81003; 85025; 99284; G0480

== ENCOUNTER 2020-06-17 14:49 | Emergency (ER) | payer MEDICAID ==
[~2020-06-17] VITALS: Ht 182.9 cm; Wt 86.0 kg
[~2020-06-17 14:49] MED LIST changes: +BUPR300T52 PO; +GABA-531 PO; -PARO30TA76 PO; +QUET300T2 PO; -SERT100T PO; +TRAZ300T11 PO
[2020-06-17] MEDS ORDERED: GABAPENTIN 300MG CAPSULE PO ONE (15:30)
[2020-06-17] MEDS ORDERED: BUPROPION HCL 150MG TABLET XL 24HR PO ONE (15:30)
[2020-06-17] MEDS ORDERED: OLANZAPINE 5MG TABLET ODT PO ONE (15:30)
[2020-06-17 15:49] LABS: CLARITY URINE CLEAR (CLEAR); COLOR URINE YELLOW (YELLOW); KETONES URINE NEGATIVE (NEGATIVE); LEUKOCYTE ESTERASE URINE NEGATIVE (NEGATIVE); NITRITE URINE NEGATIVE (NEGATIVE); OCCULT BLOOD URINE NEGATIVE (NEGATIVE); PROTEIN URINE NEGATIVE (NEGATIVE); SPECIFIC GRAVITY URINE 1.014 (1.005-1.030); UROBILINOGEN URINE 0.2 E.U./dL (0.2-1.0)
[2020-06-17 15:51] LABS: BASOPHILS % 1.1 % (0.0-2.0); EOSINOPHILS % 3.5 % (0.0-5.0); HEMATOCRIT. 36.6 % (42.0-52.0); HEMOGLOBIN. 12.6 g/dL (14.0-18.0); LYMPHOCYTES % 25.4 % (20.0-50.0); MEAN CORPUSCULAR HEMOGLOBIN 32.8 pg (28.0-32.0); MEAN CORPUSCULAR VOLUME 94.9 fL (80.0-94.0); MEAN PLATELET VOLUME 7.6 fl (7.4-10.4); PLATELET 313 x1000/uL (130-400); RED BLOOD CELL COUNT 3.85 mill/uL (4.7-6.1); RED CELL DISTRIBUTION WIDTH 12.6 % (11.6-14.6)
[2020-06-17 15:56] LABS: CHLORIDE 105 mEq/L (98-107)
[2020-06-17 16:01] LABS: ETHANOL BLOOD 119 mg/dL
[2020-06-17 16:04] LABS: *AMPHETAMINES SCREEN URINE NEGATIVE (NEGATIVE); *BARBITURATES SCREEN URINE NEGATIVE (NEGATIVE); *BENZODIAZEPINES SCREEN URINE NEGATIVE (NEGATIVE); *COCAINE SCREEN URINE PRESUMTIVE POSITIVE (NEGATIVE)
[2020-06-17 16:05] LABS: CANNABINOID URINE SCREEN NEGATIVE (NEGATIVE); METHADONE URINE SCREEN NEGATIVE (NEGATIVE); OPIATES URINE SCREEN NEGATIVE (NEGATIVE); PHENCYCLIDINE URINE SCREEN NEGATIVE (NEGATIVE)
[2020-06-17 16:09] LABS: T4 FREE 0.76 ng/dL (0.76-1.46)
[2020-06-17 17:00] VITALS: BP 119/78
[2020-06-17] MEDS ORDERED: GABAPENTIN 300MG CAPSULE PO SCH (22:00)
== END 2020-06-17 17:41 | disposition left against medical advice (07) ==
LOC: ER 14:49
DX: T40.5X5A Adverse effect of cocaine, initial encounter (principal); Y92.9 Unspecified place or not applicable; F10.129 Alcohol abuse with intoxication, unspecified; Y90.5 Blood alcohol level of 100-119 mg/100 ml; R44.0 Auditory hallucinations; Z98.890 Other specified postprocedural states
CPT/HCPCS: 36415; 76536; 80053; 80305; 80307; 80320; 80329; 81003; 84439; 84443; 84481; 85025; 93005; 99285; G0480

== ENCOUNTER 2020-07-01 21:24 | Emergency (ER) | payer MEDICAID ==
[~2020-07-01] VITALS: Ht 182.9 cm; Wt 90.9 kg
[2020-07-01 23:05] LABS: BASOPHILS % 0.3 % (0.0-2.0); EOSINOPHILS % 1.1 % (0.0-5.0); HEMATOCRIT. 35.9 % (42.0-52.0); HEMOGLOBIN. 12.3 g/dL (14.0-18.0); LYMPHOCYTES % 22.2 % (20.0-50.0); MEAN CORPUSCULAR HEMOGLOBIN 32.5 pg (28.0-32.0); MEAN PLATELET VOLUME 7.5 fl (7.4-10.4); MONOCYTES % 5.3 % (2.0-8.0); NEUTROPHILS % 71.1 % (40.0-76.0); PLATELET 299 x1000/uL (130-400); RED BLOOD CELL COUNT 3.78 mill/uL (4.7-6.1); RED CELL DISTRIBUTION WIDTH 12.9 % (11.6-14.6)
[2020-07-01 23:12] LABS: CHLORIDE 108 mEq/L (98-107)
[2020-07-01 23:16] LABS: ETHANOL BLOOD 80 mg/dL
[2020-07-02 00:08] LABS: CLARITY URINE CLEAR (CLEAR); COLOR URINE YELLOW (YELLOW); KETONES URINE NEGATIVE (NEGATIVE); LEUKOCYTE ESTERASE URINE NEGATIVE (NEGATIVE); NITRITE URINE NEGATIVE (NEGATIVE); OCCULT BLOOD URINE NEGATIVE (NEGATIVE); PROTEIN URINE NEGATIVE (NEGATIVE); SPECIFIC GRAVITY URINE 1.011 (1.005-1.030); UROBILINOGEN URINE 0.2 E.U./dL (0.2-1.0)
[2020-07-02 00:19] LABS: *COCAINE SCREEN URINE NEGATIVE (NEGATIVE); METHADONE URINE SCREEN NEGATIVE (NEGATIVE); OPIATES URINE SCREEN NEGATIVE (NEGATIVE)
[2020-07-02 00:20] LABS: *AMPHETAMINES SCREEN URINE NEGATIVE (NEGATIVE); *BARBITURATES SCREEN URINE NEGATIVE (NEGATIVE); *BENZODIAZEPINES SCREEN URINE NEGATIVE (NEGATIVE); CANNABINOID URINE SCREEN PRESUMTIVE POSITIVE (NEGATIVE); PHENCYCLIDINE URINE SCREEN NEGATIVE (NEGATIVE)
[2020-07-02] MEDS: OLANZAPINE 10MG TABLET PO SCH ×2 (09:36)
[2020-07-02 13:00] VITALS: BP 121/80
== END 2020-07-02 13:45 | disposition home or self-care (01) ==
LOC: ER 21:24
DX: R45.851 Suicidal ideations (principal); R44.0 Auditory hallucinations; F17.200 Nicotine dependence, unspecified, uncomplicated
CPT/HCPCS: 36415; 80053; 80305; 80320; 81003; 85025; 93005; 99285; G0480

== ENCOUNTER 2022-05-04 00:16 | Emergency (ER) | payer MEDICAID, OTHER ==
[~2022-05-04] VITALS: Ht 175.3 cm; Wt 75.0 kg
[~2022-05-04 00:16] MED LIST changes: -GABA-531 PO; +GABA-532 PO
[2022-05-04 00:41] LABS: EOSINOPHILS % 5.5 % (0.0-5.0); HEMATOCRIT. 38.1 % (42.0-52.0); HEMOGLOBIN. 13.2 g/dL (14.0-18.0); LYMPHOCYTES % 29.2 % (20.0-50.0); MEAN CORPUSCULAR HEMOGLOBIN 33.8 pg (28.0-32.0); MEAN CORPUSCULAR VOLUME 97.3 fL (80.0-94.0); MEAN PLATELET VOLUME 7.5 fl (7.4-10.4); MONOCYTES % 4.2 % (2.0-8.0); NEUTROPHILS % 60.1 % (40.0-76.0); PLATELET 299 x1000/uL (130-400); RED BLOOD CELL COUNT 3.92 mill/uL (4.7-6.1); RED CELL DISTRIBUTION WIDTH 12.5 % (11.6-14.6)
[2022-05-04 00:49] LABS: CHLORIDE 108 mEq/L (98-107)
[2022-05-04 00:57] LABS: ETHANOL BLOOD < 10 mg/dL
[2022-05-04 04:11] LABS: *AMPHETAMINES SCREEN URINE NEGATIVE (NEGATIVE); *BARBITURATES SCREEN URINE NEGATIVE (NEGATIVE); *BENZODIAZEPINES SCREEN URINE NEGATIVE (NEGATIVE); *COCAINE SCREEN URINE NEGATIVE (NEGATIVE); CANNABINOID URINE SCREEN PRESUMTIVE POSITIVE (NEGATIVE); METHADONE URINE SCREEN NEGATIVE (NEGATIVE); OPIATES URINE SCREEN NEGATIVE (NEGATIVE); PHENCYCLIDINE URINE SCREEN NEGATIVE (NEGATIVE)
[2022-05-04] MEDS ORDERED: OLANZAPINE 10MG TABLET PO SCH (09:00)
[2022-05-04] MEDS: HALOPERIDOL 5MG TABLET PO SCH ×2 (09:07→17:30)
[2022-05-04] MEDS: BENZTROPINE MESYLATE 0.5MG TABLET PO SCH ×2 (09:07→17:30)
[2022-05-04 18:53] VITALS: BP 91/53
[2022-05-04] MEDS ORDERED: TRAZODONE HCL 50MG TABLET PO SCH (21:00)
[2022-05-04] MEDS ORDERED: QUETIAPINE FUMARATE 50MG TABLET PO SCH (21:00)
== END 2022-05-04 19:06 ==
LOC: ER 00:16
DX: R45.851 Suicidal ideations (principal); F12.10 Cannabis abuse, uncomplicated; F20.9 Schizophrenia, unspecified; Z20.822 Contact with and (suspected) exposure to COVID-19
CPT/HCPCS: 36415; 80053; 80305; 80307; 80320; 80329; 85025; 99285; C9803; J1630; U0003; U0005; G0480

== ENCOUNTER 2022-06-15 05:37 | Emergency (ER) | payer MEDICAID, OTHER ==
[~2022-06-15] VITALS: Ht 182.9 cm; Wt 81.2 kg
[2022-06-15 06:11] VITALS: BP 147/69
[2022-06-15] MEDS ORDERED: OLANZAPINE 10MG TABLET PO SCH (07:00)
[2022-06-15] MEDS ORDERED: OLAN10TA3 PO (08:11)
[2022-06-15] MEDS ORDERED: MIDAZOLAM HCL 2 MG/2 ML VIAL IM ONE (08:15)
== END 2022-06-15 08:16 | disposition home or self-care (01) ==
LOC: ER 06:19
DX: F91.9 Conduct disorder, unspecified (principal); F20.9 Schizophrenia, unspecified; E05.90 Thyrotoxicosis, unspecified without thyrotoxic crisis or storm
CPT/HCPCS: 99283

== ENCOUNTER 2022-09-17 17:48 | Emergency (ER) | payer MEDICAID ==
[~2022-09-17] VITALS: Ht 185.4 cm; Wt 82.0 kg
[~2022-09-17 17:48] MED LIST changes: +OLAN10TA3 PO
[2022-09-17 17:52] VITALS: BP 144/86
== END 2022-09-18 00:12 | disposition home or self-care (01) ==
LOC: ER 17:48
DX: U07.1 COVID-19 (principal); F41.9 Anxiety disorder, unspecified; F20.9 Schizophrenia, unspecified; Z79.899 Other long term (current) drug therapy
CPT/HCPCS: 87426; 99283; C9803

== ENCOUNTER 2023-02-17 13:01 | Emergency (ER) | payer MEDICAID, OTHER ==
[~2023-02-17] VITALS: Ht 175.3 cm; Wt 80.0 kg
[2023-02-17] MEDS ORDERED: OLANZAPINE 5MG TABLET ODT PO ONE (15:15)
[2023-02-17] MEDS: TRAZODONE HCL 50MG TABLET PO SCH ×2 (15:15→17:00)
[2023-02-17 18:04] LABS: BASOPHILS % 0.5 % (0.0-2.0); EOSINOPHILS % 0.7 % (0.0-5.0); HEMATOCRIT. 38.9 % (42.0-52.0); HEMOGLOBIN. 13.3 g/dL (14.0-18.0); LYMPHOCYTES % 21.3 % (20.0-50.0); MEAN CORPUSCULAR HEMOGLOBIN 33.4 pg (28.0-32.0); MEAN CORPUSCULAR VOLUME 97.6 fL (80.0-94.0); MEAN PLATELET VOLUME 6.8 fl (7.4-10.4); MONOCYTES % 4.7 % (2.0-8.0); NEUTROPHILS % 72.8 % (40.0-76.0); PLATELET 521 x1000/uL (130-400); RED BLOOD CELL COUNT 3.99 mill/uL (4.7-6.1); RED CELL DISTRIBUTION WIDTH 13.1 % (11.6-14.6)
[2023-02-17 18:05] LABS: CHLORIDE 102 mEq/L (98-107)
[2023-02-17 18:11] LABS: ETHANOL BLOOD < 10 mg/dL
[2023-02-17 21:05] LABS: CLARITY URINE CLEAR (CLEAR); COLOR URINE YELLOW (YELLOW); KETONES URINE NEGATIVE (NEGATIVE); LEUKOCYTE ESTERASE URINE NEGATIVE (NEGATIVE); NITRITE URINE NEGATIVE (NEGATIVE); OCCULT BLOOD URINE NEGATIVE (NEGATIVE); PH URINE 6.5 (4.5-8.0); PROTEIN URINE NEGATIVE (NEGATIVE); SPECIFIC GRAVITY URINE 1.005 (1.005-1.030)
[2023-02-17 21:16] LABS: *AMPHETAMINES SCREEN URINE PRESUMTIVE POSITIVE (NEGATIVE); *BARBITURATES SCREEN URINE NEGATIVE (NEGATIVE); *BENZODIAZEPINES SCREEN URINE NEGATIVE (NEGATIVE); *COCAINE SCREEN URINE NEGATIVE (NEGATIVE); CANNABINOID URINE SCREEN PRESUMTIVE POSITIVE (NEGATIVE); METHADONE URINE SCREEN NEGATIVE (NEGATIVE); OPIATES URINE SCREEN NEGATIVE (NEGATIVE); PHENCYCLIDINE URINE SCREEN NEGATIVE (NEGATIVE)
[2023-02-18] MEDS: TRAZODONE HCL 50MG TABLET PO SCH (09:23)
[2023-02-18] MEDS: OLANZAPINE 10MG TABLET PO SCH (09:45)
[2023-02-18] MEDS ORDERED: TRAZODONE HCL 50MG TABLET PO SCH (21:00)
[2023-02-19] MEDS: OLANZAPINE 10MG TABLET PO SCH (09:00)
[2023-02-19] MEDS ORDERED: TRAZODONE HCL 50MG TABLET PO SCH (21:00)
[2023-02-20 06:48] VITALS: BP 91/54
[2023-02-20] MEDS: OLANZAPINE 10MG TABLET PO SCH (09:20)
== END 2023-02-20 11:51 | disposition home or self-care (01) ==
LOC: ER 13:18
DX: R45.851 Suicidal ideations (principal); Z20.822 Contact with and (suspected) exposure to COVID-19; Z86.59 Personal history of other mental and behavioral disorders; Z86.39 Personal history of other endocrine, nutritional and metabolic disease
CPT/HCPCS: 36415; 80053; 80305; 80307; 80320; 80329; 81003; 85025; 87426; 99285; C9803; Z7610; G0480

== ENCOUNTER 2023-06-26 16:44 | Emergency (ER) | payer MEDICAID, OTHER ==
[~2023-06-26] VITALS: Ht 180.3 cm; Wt 77.1 kg
[2023-06-26 16:48] VITALS: O2SAT 99
[2023-06-26] MEDS ORDERED: OLANZAPINE 5MG TABLET ODT PO NR (17:30)
[2023-06-26 20:56] LABS: BASOPHILS % 0.7 % (0.0-2.0); EOSINOPHILS % 3.9 % (0.0-5.0); HEMATOCRIT. 35.5 % (42.0-52.0); HEMOGLOBIN. 12.2 g/dL (14.0-18.0); LYMPHOCYTES % 30.5 % (20.0-50.0); MEAN CORPUSCULAR HEMOGLOBIN 32.9 pg (28.0-32.0); MEAN CORPUSCULAR HGB CONC 34.5 g/dL (31.0-37.0); MEAN CORPUSCULAR VOLUME 95.4 fL (80.0-94.0); MEAN PLATELET VOLUME 7.4 fl (7.4-10.4); MONOCYTES % 4.8 % (2.0-8.0); NEUTROPHILS % 60.1 % (40.0-76.0); PLATELET 314 x1000/uL (130-400); RED BLOOD CELL COUNT 3.72 mill/uL (4.7-6.1); RED CELL DISTRIBUTION WIDTH 12.8 % (11.6-14.6); WHITE BLOOD COUNT 5.5 x1000/uL (4.5-11.0)
[2023-06-26 21:12] LABS: CHLORIDE 108 mEq/L (98-107); INDEX HEMOLYSI 1 (1-3); INDEX ICTERIC 1 (1-4); INDEX LIPEMIC 1 (1-3); POTASSIUM 3.8 mEq/L (3.5-5.1); SODIUM 139 mEq/L (136-145)
[2023-06-26 21:23] LABS: ALANINE AMINOTRANSFERASE 17 IU/L (13-61); ALBUMIN 3.3 g/dL (3.4-5.0); ASPARTATE AMINOTRANSFERASE 12 IU/L (15-37); BILIRUBIN TOTAL 0.5 mg/dL (0.1-1.0); CALCIUM 8.2 mg/dL (8.5-10.1); CARBON DIOXIDE 28 mEq/L (21-32); CREATININE 0.9 mg/dL (0.6-1.3); ETHANOL BLOOD < 10 mg/dL (-10); GLUCOSE 109 mg/dL (70-105); PROTEIN TOTAL 6.4 g/dL (6.0-8.3); UREA NITROGEN BLOOD 8 mg/dL (7-21)
[2023-06-27 10:59] LABS: CLARITY URINE CLEAR (CLEAR); COLOR URINE YELLOW (YELLOW); GLUCOSE URINE NEGATIVE (NEGATIVE); KETONES URINE NEGATIVE (NEGATIVE); LEUKOCYTE ESTERASE URINE NEGATIVE (NEGATIVE); NITRITE URINE NEGATIVE (NEGATIVE); OCCULT BLOOD URINE NEGATIVE (NEGATIVE); PH URINE 6.5 (4.5-8.0); PROTEIN URINE NEGATIVE (NEGATIVE); SPECIFIC GRAVITY URINE 1.013 (1.005-1.030)
[2023-06-27 11:19] LABS: *AMPHETAMINES SCREEN URINE NEGATIVE (NEGATIVE); *BARBITURATES SCREEN URINE NEGATIVE (NEGATIVE); *BENZODIAZEPINES SCREEN URINE NEGATIVE (NEGATIVE); *COCAINE SCREEN URINE NEGATIVE (NEGATIVE); CANNABINOID URINE SCREEN PRESUMTIVE POSITIVE (NEGATIVE); ECSTASY MDMA SCREEN URINE NEGATIVE (NEGATIVE); METHADONE URINE SCREEN NEGATIVE (NEGATIVE); OPIATES URINE SCREEN NEGATIVE (NEGATIVE); PHENCYCLIDINE URINE SCREEN NEGATIVE (NEGATIVE)
[2023-06-27] MEDS ORDERED: OLANZAPINE 5MG TABLET ODT PO SCH (20:00)
[2023-06-27 22:00] VITALS: BP 130/80; PULSE 75; RESP 17; TEMP 98.1
== END 2023-06-27 23:02 | disposition short-term general hospital (02) ==
LOC: ER 16:44
DX: R45.851 Suicidal ideations (principal); R44.1 Visual hallucinations; F41.9 Anxiety disorder, unspecified; F32.9 Major depressive disorder, single episode, unspecified; F12.10 Cannabis abuse, uncomplicated; F15.10 Other stimulant abuse, uncomplicated; Z20.822 Contact with and (suspected) exposure to COVID-19
CPT/HCPCS: 80053; 80320; 85025; 36415; 93005; 99285; 87426; 80305; 81003; C9803; G0480

== ENCOUNTER 2023-08-25 15:33 | Emergency (ER) | payer MEDICAID ==
[~2023-08-25] VITALS: Ht 180.3 cm; Wt 82.0 kg
[2023-08-25 15:41] VITALS: O2SAT 99
[2023-08-25 16:28] LABS: BASOPHILS % 0.5 % (0.0-2.0); EOSINOPHILS % 0.8 % (0.0-5.0); HEMATOCRIT. 39.6 % (42.0-52.0); HEMOGLOBIN. 13.6 g/dL (14.0-18.0); LYMPHOCYTES % 14.2 % (20.0-50.0); MEAN CORPUSCULAR HEMOGLOBIN 32.6 pg (28.0-32.0); MEAN CORPUSCULAR HGB CONC 34.3 g/dL (31.0-37.0); MEAN PLATELET VOLUME 7.8 fl (7.4-10.4); MONOCYTES % 4.3 % (2.0-8.0); NEUTROPHILS % 80.2 % (40.0-76.0); PLATELET 323 x1000/uL (130-400); RED BLOOD CELL COUNT 4.17 mill/uL (4.7-6.1); RED CELL DISTRIBUTION WIDTH 12.9 % (11.6-14.6); WHITE BLOOD COUNT 7.2 x1000/uL (4.5-11.0)
[2023-08-25 16:34] LABS: CHLORIDE 106 mEq/L (98-107); INDEX HEMOLYSI 1 (1-3); INDEX ICTERIC 1 (1-4); INDEX LIPEMIC 1 (1-3); POTASSIUM 3.6 mEq/L (3.5-5.1); SODIUM 141 mEq/L (136-145)
[2023-08-25 16:43] LABS: ACETAMINOPHEN <2 ug/mL ug/mL (10-30); ALANINE AMINOTRANSFERASE 18 IU/L (13-61); ALBUMIN 4.2 g/dL (3.4-5.0); ASPARTATE AMINOTRANSFERASE 19 IU/L (15-37); BILIRUBIN TOTAL 0.9 mg/dL (0.1-1.0); CALCIUM 8.7 mg/dL (8.5-10.1); CARBON DIOXIDE 26 mEq/L (21-32); CREATININE 1.1 mg/dL (0.6-1.3); ETHANOL BLOOD < 10 mg/dL (<10); GLUCOSE 87 mg/dL (70-105); PROTEIN TOTAL 7.8 g/dL (6.0-8.3); UREA NITROGEN BLOOD 10 mg/dL (7-21)
[2023-08-25 18:16] LABS: CLARITY URINE CLEAR (CLEAR); COLOR URINE YELLOW (YELLOW); GLUCOSE URINE NEGATIVE (NEGATIVE); KETONES URINE 2+ (NEGATIVE); LEUKOCYTE ESTERASE URINE NEGATIVE (NEGATIVE); NITRITE URINE NEGATIVE (NEGATIVE); OCCULT BLOOD URINE NEGATIVE (NEGATIVE); PROTEIN URINE NEGATIVE (NEGATIVE); SPECIFIC GRAVITY URINE 1.017 (1.005-1.030)
[2023-08-25 18:26] LABS: *AMPHETAMINES SCREEN URINE NEGATIVE (NEGATIVE); *BARBITURATES SCREEN URINE NEGATIVE (NEGATIVE); *BENZODIAZEPINES SCREEN URINE NEGATIVE (NEGATIVE); *COCAINE SCREEN URINE NEGATIVE (NEGATIVE); CANNABINOID URINE SCREEN PRESUMTIVE POSITIVE (NEGATIVE); ECSTASY MDMA SCREEN URINE NEGATIVE (NEGATIVE); OPIATES URINE SCREEN NEGATIVE (NEGATIVE); PHENCYCLIDINE URINE SCREEN NEGATIVE (NEGATIVE)
[2023-08-26] MEDS: OLANZAPINE 5MG TABLET ODT PO SCH ×2 (15:59→20:27)
[2023-08-27 00:11] VITALS: BP 110/68; PULSE 60; RESP 16; TEMP 98.1
== END 2023-08-27 00:33 ==
LOC: ER 15:43
DX: R45.851 Suicidal ideations (principal); F12.10 Cannabis abuse, uncomplicated; Z20.822 Contact with and (suspected) exposure to COVID-19; Z98.890 Other specified postprocedural states; Z86.59 Personal history of other mental and behavioral disorders; Z86.39 Personal history of other endocrine, nutritional and metabolic disease
CPT/HCPCS: 80053; 80305; 81003; 80307; 80329; 80320; 85025; 36415; 99285; 87426; C9803; 99283; G0480

== ENCOUNTER 2023-11-27 16:33 | Emergency (ER) | payer MEDICAID, OTHER ==
[~2023-11-27] VITALS: Ht 175.3 cm; Wt 77.0 kg
[2023-11-27 16:36] VITALS: O2SAT 96
[2023-11-27] MEDS ORDERED: LORAZEPAM 0.5MG TABLET PO ONE (16:45)
[2023-11-27] MEDS ORDERED: OLANZAPINE 10MG TABLET PO SCH (17:00)
[2023-11-27 17:08] VITALS: BP 137/91; PULSE 90; RESP 16; TEMP 98.3
[2023-11-27] MEDS ORDERED: OLAN10TA3 PO (18:23)
[2023-11-27] MEDS ORDERED: BUPR300T52 PO ×2 (18:23)
[2023-11-27] MEDS ORDERED: TRAZ300T11 PO ×2 (18:23)
[2023-11-27] MEDS ORDERED: TRAZ-251 MT (18:27)
== END 2023-11-27 19:00 | disposition home or self-care (01) ==
LOC: ER 16:33
DX: F41.9 Anxiety disorder, unspecified (principal); F32.A Depression, unspecified; F20.9 Schizophrenia, unspecified; E05.80 Other thyrotoxicosis without thyrotoxic crisis or storm; F12.90 Cannabis use, unspecified, uncomplicated; Z98.890 Other specified postprocedural states
CPT/HCPCS: 99283

== ENCOUNTER 2023-12-10 12:29 | Emergency (ER) | payer MEDICAID ==
[~2023-12-10] VITALS: Ht 185.4 cm; Wt 79.0 kg
[~2023-12-10 12:29] MED LIST changes: -BUPR300T52 PO; +TRAZ-251 MT; -TRAZ300T11 PO
[2023-12-10 12:32] VITALS: O2SAT 98
[2023-12-10 12:54] LABS: BASOPHILS % 0.6 % (0.0-2.0); EOSINOPHILS % 0.8 % (0.0-5.0); HEMATOCRIT. 41.7 % (42.0-52.0); MEAN CORPUSCULAR HEMOGLOBIN 33.5 pg (28.0-32.0); MEAN CORPUSCULAR HGB CONC 33.6 g/dL (31.0-37.0); MEAN CORPUSCULAR VOLUME 99.8 fL (80.0-94.0); MEAN PLATELET VOLUME 7.2 fl (7.4-10.4); MONOCYTES % 3.4 % (2.0-8.0); NEUTROPHILS % 77.2 % (40.0-76.0); PLATELET 409 x1000/uL (130-400); RED BLOOD CELL COUNT 4.17 mill/uL (4.7-6.1); RED CELL DISTRIBUTION WIDTH 12.4 % (11.6-14.6); WHITE BLOOD COUNT 7.9 x1000/uL (4.5-11.0)
[2023-12-10 13:08] LABS: ALANINE AMINOTRANSFERASE 13 IU/L (10-49); ALBUMIN 4.9 g/dL (3.2-4.8); ASPARTATE AMINOTRANSFERASE 17 IU/L (<34); BILIRUBIN TOTAL 0.7 mg/dL (0.1-1.0); CALCIUM 9.1 mg/dL (8.7-10.4); CARBON DIOXIDE 26 mEq/L (21-32); CHLORIDE 107 mEq/L (98-107); CREATININE 0.9 mg/dL (0.6-1.3); ETHANOL BLOOD 51 mg/dL (<10); GLUCOSE 90 mg/dL (70-105); POTASSIUM 3.4 mEq/L (3.5-5.1); PROTEIN TOTAL 8.3 g/dL (6.0-8.3); SODIUM 139 mEq/L (136-145); UREA NITROGEN BLOOD 10 mg/dL (9-23)
[2023-12-10] MEDS ORDERED: POTASSIUM CHLORIDE 20MEQ TABLET SR PO ONE (14:45)
[2023-12-10 15:45] LABS: CLARITY URINE CLEAR (CLEAR); COLOR URINE YELLOW (YELLOW); GLUCOSE URINE NEGATIVE (NEGATIVE); KETONES URINE 1+ (NEGATIVE); LEUKOCYTE ESTERASE URINE NEGATIVE (NEGATIVE); NITRITE URINE NEGATIVE (NEGATIVE); OCCULT BLOOD URINE NEGATIVE (NEGATIVE); PH URINE 5.5 (4.5-8.0); PROTEIN URINE NEGATIVE (NEGATIVE); SPECIFIC GRAVITY URINE 1.016 (1.005-1.030)
[2023-12-10 15:59] LABS: *AMPHETAMINES SCREEN URINE PRESUMPTIVE POSITIVE (NEGATIVE); *BARBITURATES SCREEN URINE NEGATIVE (NEGATIVE); *BENZODIAZEPINES SCREEN URINE NEGATIVE (NEGATIVE); *COCAINE SCREEN URINE NEGATIVE (NEGATIVE); CANNABINOID URINE SCREEN PRESUMPTIVE POSITIVE (NEGATIVE); ECSTASY MDMA SCREEN URINE CONF.TEST INDICATED (NEGATIVE); METHADONE URINE SCREEN Neg (NEGATIVE); OPIATES URINE SCREEN NEGATIVE (NEGATIVE); PHENCYCLIDINE URINE SCREEN NEGATIVE (NEGATIVE)
[2023-12-10] MEDS ORDERED: ACETAMINOPHEN 325MG TABLET PO ONE (16:00)
[2023-12-10] MEDS ORDERED: LORAZEPAM 1MG TABLET PO ONE (16:00)
[2023-12-10] MEDS ORDERED: TRAZODONE HCL 50MG TABLET PO STA (21:47)
[2023-12-11 06:49] VITALS: BP 118/73; PULSE 56; RESP 16; TEMP 98.7
[2023-12-11] MEDS ORDERED: OLANZAPINE 5MG TABLET PO SCH (09:15)
[2023-12-11] MEDS ORDERED: GABAPENTIN 300MG CAPSULE PO SCH (14:00)
[2023-12-11] MEDS ORDERED: TRAZODONE HCL 50MG TABLET PO SCH (21:00)
== END 2023-12-11 11:48 | disposition home or self-care (01) ==
LOC: ER 12:29
DX: R45.851 Suicidal ideations (principal); F19.10 Other psychoactive substance abuse, uncomplicated; E87.6 Hypokalemia; F12.10 Cannabis abuse, uncomplicated; Z20.822 Contact with and (suspected) exposure to COVID-19
CPT/HCPCS: 36415; 80053; 80305; 80320; 81003; 85025; 87426; 99285; G0480

== ENCOUNTER 2024-01-25 14:22 | Emergency (ER) | payer MEDICAID ==
[~2024-01-25] VITALS: Ht 177.8 cm; Wt 75.0 kg
[2024-01-25 14:27] VITALS: BP 148/82; PULSE 88; RESP 16; TEMP 98.4; O2SAT 99
[2024-01-25] MEDS: OLANZAPINE 10MG TABLET PO SCH (14:30)
[2024-01-25] MEDS ORDERED: LORA-250 MT (14:38)
[2024-01-25] MEDS ORDERED: OLAN15TA3 MT (16:11)
[2024-01-25] MEDS ORDERED: TRAZ-251 MT (16:11)
== END 2024-01-25 16:46 | disposition home or self-care (01) ==
LOC: ER 14:22
DX: F20.9 Schizophrenia, unspecified (principal); F41.9 Anxiety disorder, unspecified; F32.A Depression, unspecified; E05.90 Thyrotoxicosis, unspecified without thyrotoxic crisis or storm; F12.90 Cannabis use, unspecified, uncomplicated; F10.20 Alcohol dependence, uncomplicated; Z76.0 Encounter for issue of repeat prescription; Z98.890 Other specified postprocedural states; Y90.9 Presence of alcohol in blood, level not specified
CPT/HCPCS: 99283

== ENCOUNTER 2024-01-27 10:08 | Emergency (ER) | payer MEDICAID ==
[~2024-01-27] VITALS: Ht 188 cm; Wt 91.0 kg
[~2024-01-27 10:08] MED LIST changes: +OLAN15TA3 MT
[2024-01-27] MEDS ORDERED: OLAN15TA3 PO (10:16)
[2024-01-27 10:29] VITALS: O2SAT 99
[2024-01-27] MEDS: OLANZAPINE 10MG TABLET PO STA (10:52)
[2024-01-27 13:45] VITALS: BP 140/76; PULSE 81; RESP 14; TEMP 98.4
== END 2024-01-27 13:48 | disposition home or self-care (01) ==
LOC: ER 10:37
DX: F41.9 Anxiety disorder, unspecified (principal); F12.10 Cannabis abuse, uncomplicated; Z76.0 Encounter for issue of repeat prescription; Z86.59 Personal history of other mental and behavioral disorders; Z86.39 Personal history of other endocrine, nutritional and metabolic disease; Z98.890 Other specified postprocedural states
CPT/HCPCS: 99283

== ENCOUNTER 2024-10-26 16:44 | Emergency (ER) | payer MEDICAID ==
[~2024-10-26] VITALS: Ht 180.3 cm; Wt 77.1 kg
[~2024-10-26 16:44] MED LIST changes: +GABA-1180 PO; -GABA-532 PO
[2024-10-26 16:54] VITALS: O2SAT 96
[2024-10-26 18:16] VITALS: BP 132/82; PULSE 63; RESP 18; TEMP 98.2; O2SAT 100
== END 2024-10-27 06:08 | disposition home or self-care (01) ==
LOC: ER 16:44
DX: F41.9 Anxiety disorder, unspecified (principal); F31.9 Bipolar disorder, unspecified; Z98.890 Other specified postprocedural states; Z53.21 Procedure and treatment not carried out due to patient leaving prior to being seen by health care provider
CPT/HCPCS: 99281

== ENCOUNTER 2025-01-04 20:53 | Emergency (ER) | payer MEDICAID, OTHER ==
[~2025-01-04] VITALS: Ht 180.3 cm; Wt 91.0 kg
[2025-01-04 20:57] VITALS: BP 118/64; PULSE 58; RESP 16; TEMP 36.6; O2SAT 97
[2025-01-05] MEDS ORDERED: NAPR-1176 MT (03:47)
[2025-01-05] MEDS ORDERED: LIDO700A15 TP (03:47)
== END 2025-01-04 23:00 | disposition home or self-care (01) ==
LOC: ER 20:53
DX: S93.491A Sprain of other ligament of right ankle, initial encounter (principal); F10.90 Alcohol use, unspecified, uncomplicated; F12.90 Cannabis use, unspecified, uncomplicated; Z79.899 Other long term (current) drug therapy; X50.1XXA Overexertion from prolonged static or awkward postures, initial encounter; Y93.89 Activity, other specified; Y92.89 Other specified places as the place of occurrence of the external cause; Y99.8 Other external cause status; Y90.9 Presence of alcohol in blood, level not specified
CPT/HCPCS: 99283

== ENCOUNTER 2025-01-05 01:06 | Emergency (ER) | payer OTHER ==
[~2025-01-05] VITALS: Ht 177.8 cm; Wt 78.0 kg
[2025-01-05 01:11] VITALS: O2SAT 98
[2025-01-05] MEDS: IBUPROFEN 600MG TABLET PO ONE (03:03)
[2025-01-05] MEDS ORDERED: NAPR-1176 MT (03:47)
[2025-01-05] MEDS ORDERED: LIDO700A15 TP (03:47)
[2025-01-05 04:04] VITALS: BP 114/71; PULSE 58; RESP 18; TEMP 36.9; O2SAT 99
== END 2025-01-05 04:07 | disposition home or self-care (01) ==
LOC: ER 01:06
DX: S93.491A Sprain of other ligament of right ankle, initial encounter (principal); F10.90 Alcohol use, unspecified, uncomplicated; F12.90 Cannabis use, unspecified, uncomplicated; Z79.899 Other long term (current) drug therapy; Z79.1 Long term (current) use of non-steroidal anti-inflammatories (NSAID); X58.XXXA Exposure to other specified factors, initial encounter; Y93.89 Activity, other specified; Y92.89 Other specified places as the place of occurrence of the external cause; Y99.8 Other external cause status; Y90.9 Presence of alcohol in blood, level not specified
CPT/HCPCS: 99283

== ENCOUNTER 2025-06-07 18:41 | Emergency (ER) | payer MEDICAID ==
[~2025-06-07 18:41] MED LIST changes: +LIDO-53 TP; +NAPR-1176 MT
== END 2025-06-07 19:13 | disposition left against medical advice (07) ==
LOC: ER 18:41
DX: M79.671 Pain in right foot (principal); Z53.21 Procedure and treatment not carried out due to patient leaving prior to being seen by health care provider